=== PATIENT | male | born 1965 | race Caucasian/White ===

== ENCOUNTER 2016-04-29 05:14 | Inpatient (IN) | payer OTHER ==
[2016-04-29] VITALS (48 sets, daily range): BP systolic 85–119; BP diastolic 53–85; PULSE 89–116; TEMP 35.3–36.5; O2SAT 88–100; Ht 172.7 cm; Wt 63.0 kg
[~2016-04-29] VITALS: Ht 172.7 cm; Wt 63.0 kg
[~2016-04-29 05:14] MED LIST: PRED50TA PO
[2016-04-29] MEDS ORDERED: FENTANYL CITRATE INJ 50 MCG/1 ML 2 ML VIAL ONE ×3 (05:16→08:39)
[2016-04-29 05:26] LABS: HEMATOCRIT 48.2 % (42-52); MEAN CELL VOLUME 86.8 fL (80-100); MEAN CORPUSCULAR HEMOGLOBIN 30.3 pg (25-34); MEAN CORPUSCULAR HGB CONC 34.9 g/dl (32-36); MEAN PLATELET VOLUME 9.6 fL (7.4-10.4); PLATELET COUNT 302 K/uL (130-400); RED BLOOD COUNT 5.55 M/uL (4.7-6.1); WHITE BLOOD COUNT 11.84 K/uL (4.8-10.8)
[2016-04-29] MEDS ORDERED: NiCARDipine HCL INJ 2.5 MG/ML 10 ML AMP ONE (05:28)
[2016-04-29] MEDS ORDERED: NITROGLYCERIN/D5W 100MCG/ML 20ML SYR ONE (05:29)
[2016-04-29] MEDS ORDERED: MIDAZOLAM HCL 1 MG/ML 2ML VIAL ONE ×3 (05:29→08:41)
[2016-04-29] MEDS ORDERED: HEPARIN SOD (PORCINE) 1000 UNIT/ML 10 ML VIAL ONE (05:29)
--- NOTE | 2016-04-29 05:29 | EMERGENCY ROOM VISIT NOTE ---
History Report prepared by Natanael: Anthony Conrad Under the Supervision of: Dr. Julius Molina M.D. First contact with patient: 05:13 Chief Complaint: HEART ALERT Stated Complaint: HEART ALERT History of Present Illness The patient is a 50 year old male who presents to the Emergency Room with complaints of severe substernal chest pain starting about an hour ago. The patient woke up with the pain. He notes pain radiation to the back. He denies any pain radiation to the arm or jaw. He currently rates a pain intensity of 10/ 10. He also complains of lightheadedness and shortness of breath. EMS notes he is mildly hypotensive and diaphoretic. He is received Nitro, aspirin, and fluids prior to arrival. His blood sugar was 132. He does not have a history of diabetes. He denies any previous illnesses. The patient denies any drug or alcohol use today. The patient is a current smoker. He does not have any personal or family history of heart disease. He also does not have a personal or family history of blood clots. He does not take any medication. He does not have any allergies. Source of History: patient Onset: about an hour ago Position: chest (substernal) Symptom Intensity: severe Modifying Factors (Relieving): other (Nitro, aspirin, and fluids prior to arrival) Associated Symptoms: + SOB, + diaphoresis Review of Systems See HPI for pertinent positives & negatives. A total of 10 systems reviewed and were otherwise negative. Past Medical & Surgical Medical Problems: (1) No Known Active Medical Problems Family History Patient reports no known family medical history. Social History Smoking Status: Current Every Day Smoker Alcohol Use: occasionally Marital Status: in relationship Housing Status: lives with significant other Occupation Status: employed Current/Historical Medications No Active Prescriptions or Reported Meds Allergies Coded Allergies: BEE STING (Unverified Allergy, Intermediate, swelling, 04/29/16) Physical Exam Vital Signs Date Time Temp Pulse Resp B/P Pulse Ox O2 Delivery O2 Flow Rate FiO2 04/29/16 05:24 36.7 64 20 95/64 94 Room Air 04/29/16 05:24 93 Room Air 4.0 Nasal Cannula 04/29/16 05:21 72 Physical Exam GENERAL: Patient is acutely ill appearing and in severe distress. HEENT: No acute trauma, normocephalic atraumatic, mucous membranes moist, no nasal congestion, no scleral icterus. NECK: No stridor, no adenopathy, no meningismus, trachea is midline. LUNGS: Diffuse crackles. No wheeze, no rhonchi. HEART: Soft heart tones but regular, no murmur. ABDOMEN: Soft, nontender, bowel sounds positive, no masses appreciated, no peritonitis. BACK: No midline tenderness, no CVA tenderness EXTREMITIES: Normal motion all extremities, no cyanosis, no edema. Right posterior pulse on ankle strong and left dorsalis pedis pulse strong. NEUROLOGIC: Alert and oriented, no acute motor or sensory deficits, no focal weakness, cranial nerves grossly intact. SKIN: No rash, no jaundice, pale, diaphoretic. Medical Decision & Procedures ER Provider Diagnostic Interpretation: X ray results are stated below per my interpretation: 1 view Chest X-Ray Chronic lung disease versus early pulmonary edema, no lobar infiltrates, trace middle lobe effusion, no pneumothorax. Laboratory Results 04/29/16 05:15 Red Blood Count 5.55, Mean Corpuscular Volume 86.8, Mean Corpuscular Hemoglobin 30.3, Mean Corpuscular Hemoglobin Concent 34.9, Mean Platelet Volume 9.6, Neutrophils (%) (Auto) 46.6, Lymphocytes (%) (Auto) 44.8, Monocytes (%) (Auto) 6.5, Eosinophils (%) (Auto) 1.6, Basophils (%) (Auto) 0.3, Neutrophils # (Auto) 5.53, Lymphocytes # (Auto) 5.30, Monocytes # (Auto) 0.77, Eosinophils # (Auto) 0.19, Basophils # (Auto) 0.03 04/29/16 05:15 04/29/16 06:01 Test 04/29/16 05:15 04/29/16 06:01 White Blood Count 11.84 K/uL (4.8-10.8) Red Blood Count 5.55 M/uL (4.7-6.1) Hemoglobin 16.8 g/dL (14.0-18.0) Hematocrit 48.2 % (42-52) Mean Corpuscular Volume 86.8 fL (80-100) Mean Corpuscular Hemoglobin 30.3 pg (25-34) Mean Corpuscular Hemoglobin Concent 34.9 g/dl (32-36) Platelet Count 302 K/uL (130-400) Mean Platelet Volume 9.6 fL (7.4-10.4) Neutrophils (%) (Auto) 46.6 % Lymphocytes (%) (Auto) 44.8 % Monocytes (%) (Auto) 6.5 % Eosinophils (%) (Auto) 1.6 % Basophils (%) (Auto) 0.3 % Neutrophils # (Auto) 5.53 K/uL (1.4-6.5) Lymphocytes # (Auto) 5.30 K/uL (1.2-3.4) Monocytes # (Auto) 0.77 K/uL (0.11-0.59) Eosinophils # (Auto) 0.19 K/uL (0-0.5) Basophils # (Auto) 0.03 K/uL (0-0.2) RDW Standard Deviation 43.0 fL (36.4-46.3) RDW Coefficient of Variation 13.7 % (11.5-14.5) Immature Granulocyte % (Auto) 0.2 % Immature Granulocyte # (Auto) 0.02 K/uL (0.00-0.02) Red Blood Cell Morphology Unremarkable Anion Gap 11.0 mmol/L (3-11) Est Creatinine Clear Calc Drug Dose 76.2 ml/min Estimated GFR () 106.2 Estimated GFR (Non- 91.7 BUN/Creatinine Ratio 17.0 (10-20) Calcium Level 8.3 mg/dl (8.5-10.1) Creatine Kinase MB 1.7 ng/ml (0.5-3.6) Creatine Kinase MB Ratio (0-3.0) Troponin I < 0.015 ng/ml (0-0.045) Total Creatine Kinase 87 U/L (39-308) Laboratory results as reviewed by me. Medications Administered Medications (Trade) Dose Ordered Sig/Ivette Route Start Time Stop Time Status Last Admin Dose Admin Miscellaneous Information (Nursing Verbal Med Order) 1 ea ONE ONCE N/A 04/29/16 05:45 04/29/16 05:46 DC 04/29/16 05:40 1 EA ECG Indication: chest pain Rate (beats per minute): 71 Rhythm: normal sinus Findings: ST depression (Inferior), no ectopy, other (anterior STEMI) ED Course 0455: I discussed the patient's case with Dr. Verdugo, form drafter with [facility]. 0513: The patient was evaluated in room B01. A complete history and physical exam was performed. 0540: Upon reevaluation, the patient is resting comfortably. Discussed results and treatment plan with the patient. He verbalized understanding and agreement with the treatment plan. The patient will be evaluated for further management. He is on his way to [facility]. 0541: I discussed the patient's case with Dr. Egan, from [facility]. Medical Decision Differential: Cardiac Ischemia (STEMI, NSTEMI, Unstable Angina, etc), Aortic Dissection, Arrhythmia, Pulmonary Embolism, Pneumonia, Pneumothorax, MSK, Infectious, Pericarditis/Myocarditis, Esophageal Rupture, Gastrointestinal, amongst other pathologies entertained. 50 yr old male heavy smoker with no other PMH nor has he seen a physician in several years. Denies family CAD history. No recent issues until awakening at 4am this morning with acute central chest pain. EKG RN TRANSFER from EMS clearly shows STEMI and thus heart alert called long before patient arrival. Patient to ED within 90 min of initial chest pain. CXR with some pulm edema vs just chronic lung disease from smoking. He has pulses bilateral lower extremities which are strong and no clear evidence of dissection on CXR. With EKG findings and history most consistent with anterior STEMI. PE is low risk given no risk factors nor history of same. Already received ASA RN TRANSFER by EMS. Single SLNTG dose with resultant significant hypotension which mildly improved with IV fluids. Given further fluids and IV fentanyl along with NC O2 here with some improvement in symptoms. Patient clearly quite ill and in severe distress requiring emergent heart catheterization. Dr Verdugo in to evaluate patient and take to [facility] emergently. Consults Time Called: [phone] Consulting Physician: Dr. Verdugo, form drafter with [facility] Returned Call: [phone] I discussed the patient's case with Dr. Verdugo, form drafter with [facility]. Additional Consults: Time Called: 0540 Consulted Phys[facility] Returned Call: [phone] Additional Comments: I discussed the patient's case with Dr. Egan, from [facility]. Impression Primary Impression: ST elevation myocardial infarction (STEMI) of anterior wall Critical Care I have personally spent greater than 45 minutes of critical care time in the direct management of this patient. This includes bedside care, interpretation of diagnostic studies, and testing, discussion with consultants, patient, and family members, and other required patient management activities. This 45 minutes is in excess of all separately billable procedures. Scribe Attestation The scribe's documentation has been prepared under my direction and personally reviewed by me in its entirety. I confirm that the note above accurately reflects all work, treatment, procedures, and medical decision making performed by me. Departure Information Dispostion Being Evaluated By Hospitalist Prescriptions No Active Prescriptions or Reported Meds Referrals [facility] (PCP) Patient Instructions My [facility]
[2016-04-29] MEDS ORDERED: NURSING VERBAL MED ORDER ONE (05:45)
[2016-04-29] MEDS ORDERED: EPTIFIBATIDE 2 MG/ML 10 ML VIAL IV ONE (05:50)
[2016-04-29] MEDS ORDERED: EPTIFIBATIDE 0.75 MG/ML 75MG VIAL IV ONE (05:50)
[2016-04-29 05:55] LABS: BLOOD UREA NITROGEN 16 mg/dl (7-18); CALCIUM 8.3 mg/dl (8.5-10.1); CARBON DIOXIDE 24 mmol/L (21-32); CHLORIDE 107 mmol/L (98-107); CREATININE 0.95 mg/dl (0.60-1.40); GLUCOSE 137 mg/dl (70-99); SODIUM 142 mmol/L (136-145)
[2016-04-29] MEDS ORDERED: DOPamine 400MG / 250ML D5W ONE (06:01)
[2016-04-29] MEDS ORDERED: FENTANYL CITRATE INJ 50 MCG/1 ML 2 ML VIAL IV STA (06:12)
[2016-04-29 06:19] LABS: BASO % 0.3 %; BASO ABS # 0.03 K/uL (0-0.2); COMPLETE YES; EOS % 1.6 %; IG% 0.2 %; LYMPH % 44.8 %; MONO % 6.5 %; NEUT % 46.6 %
[2016-04-29] MEDS ORDERED: NOREPINEPHRINE BITARTRATE 1 MG/ML 4 ML VIAL ONE (06:26)
[2016-04-29] MEDS ORDERED: LIDOCAINE/EPINEPHRINE 1% 20 ML VIAL ONE (06:30)
[2016-04-29 06:38] LABS: POTASSIUM 3.5 mmol/L (3.5-5.1)
[2016-04-29 06:52] LABS: PARTIAL THROMBOPLASTIN RATIO 1.1
--- NOTE | 2016-04-29 07:54 | DIAGNOSTIC IMAGING REPORT ---
CHEST ONE VIEW PORTABLE CLINICAL HISTORY: Chest pain. Heart alert. COMPARISON STUDY: No previous studies for comparison. FINDINGS: Lung volumes are normal. There is no pneumothorax or pleural effusion. Diffuse interstitial thickening is present. There is no consolidation. Cardiac size is normal. Mediastinal contours are unremarkable when allowing for mild rotation. There is a healed fracture of the right clavicle. IMPRESSION: Interstitial thickening consistent with mild pulmonary edema. Electronically signed by: Tiago Wesley M.D. 04/29/2016 7:52 AM Dictated Date/Time: 04/29/2016 7:51 AM
[2016-04-29] MEDS ORDERED: ATROPINE SULFATE 0.1 MG/ML 5ML SYR IV PRN (09:15)
[2016-04-29] MEDS ORDERED: EPTIFIBATIDE BOLUS / DRIP IV ONE (09:15)
[2016-04-29] MEDS ORDERED: ONDANSETRON INJ 2 MG/ML 2 ML VIAL IV PRN (09:15)
[2016-04-29 09:52] LABS: IPAP 12; ISTAT ALLEN TEST Pass; ISTAT ARTERIAL BLOOD GAS HCO3 18 meq/L (19-24); ISTAT ARTERIAL BLOOD GAS PCO2 40 mmHg (35-46); ISTAT ARTERIAL BLOOD GAS PO2 68 mmHg (80-95); ISTAT ARTERIAL BLOOD GAS pH 7.27 (7.35-7.45); ISTAT CARBON DIOXIDE 19 mEq/l (24-31); ISTAT DELIVERY SYSTEM BIPAP; ISTAT FIO2 60 %; ISTAT RATE 12; ISTAT SITE L Radial
[2016-04-29] MEDS ORDERED: SODIUM CHLORIDE 0.9% 1000ML 1,000 ML IV SCH (10:00)
[2016-04-29] MEDS: EPTIFIBATIDE INJ 75 MG PREMIXED IV SCH ×2 (10:04→22:23)
[2016-04-29] MEDS ORDERED: ATORVASTATIN 40 MG TAB PO ONE (10:15)
--- NOTE | 2016-04-29 10:24 | Procedure Note ---
Pre-Mod Sedation Assessment General Date of Moderate Sedation: Apr 29, 2016. Vital Signs: Vital Signs Past 12 Hours Date Time Temp Pulse Resp B/P Pulse Ox O2 Delivery O2 Flow Rate FiO2 04/29/16 09:20 105 60 04/29/16 08:45 122 16 95/67 90 Non-Rebreather 04/29/16 05:24 36.7 64 20 95/64 94 Room Air 04/29/16 05:24 93 Room Air 4.0 Nasal Cannula 04/29/16 05:21 72 Review Cardiovascular: regular rate, rhythm, no edema, no murmur, + abnormal peripheral pulses (Diminished pedal and PT pulses) Abdomen: non tender, soft Lungs: + rales (Bibasilar rales) Pre-Sedation Airway Assessment Oral Cavity: Dentures Short Thick Neck: No Hx of Sleep Apnea: No Smoking Status: Current Every Day Smoker ASA Classification: Class III Procedure Planning Contraindications-for Mod Sed: None Yes Notes The planned sedation has been discussed with the patient and consent obtained. I have identified the patient, determined the appropriateness of sedation and have assessed the patient immediately prior to the procedure. All medicine(s) and interventions are by my order.
--- NOTE | 2016-04-29 10:25 | Procedure Note ---
Post-Mod Sedation Assessment General Date of Moderate Sedation Apr 29, 2016. Vital Signs: Vital Signs Past 12 Hours Date Time Temp Pulse Resp B/P Pulse Ox O2 Delivery O2 Flow Rate FiO2 04/29/16 09:20 105 60 04/29/16 08:45 122 16 95/67 90 Non-Rebreather 04/29/16 05:24 36.7 64 20 95/64 94 Room Air 04/29/16 05:24 93 Room Air 4.0 Nasal Cannula 04/29/16 05:21 72 Review - Discharge Criteria Vital Signs Stable: Yes Alert/Oriented/Conversant: No (sedated,arousable) Returned to Baseline Mental St: No Nausea Absent/Minimal: Yes Pain/Discomfort/Absent/Minimal: Yes Normal/Baseline Respirations: Yes Active Bleeding?: No Pt Received D/C Instructions: N/A Prescriptions Given: None Specific Proced. D/C Criteria Distal Pulses Present (Cardiac: Yes Groin site assessed-Card Cath: Yes Voided Prior To Discharge: N/A Discharged Patients Adult Escort/Transportation: N/A
[2016-04-29 10:33] LABS: HEMATOCRIT 38.5 % (42-52); MEAN CELL VOLUME 86.7 fL (80-100); MEAN CORPUSCULAR HEMOGLOBIN 29.7 pg (25-34); MEAN CORPUSCULAR HGB CONC 34.3 g/dl (32-36); MEAN PLATELET VOLUME 9.7 fL (7.4-10.4); PLATELET COUNT 334 K/uL (130-400); RED BLOOD COUNT 4.44 M/uL (4.7-6.1); WHITE BLOOD COUNT 26.53 K/uL (4.8-10.8)
[2016-04-29 10:43] LABS: BASO ABS # 0.01 K/uL (0-0.2); COMPLETE YES; IG% 0.4 %; LYMPH % 8.7 %; LYMPH ABS # 2.31 K/uL (1.2-3.4); MONO % 5.7 %; NEUT % 85.2 %
[2016-04-29 10:44] LABS: MANUAL MICROSCOPIC REQUIRED? YES; URINE APPEARANCE TURBID (CLEAR); URINE BILIRUBIN NEG (NEG); URINE COLOR RED; URINE NITRITE NEG (NEG); URINE SPECIFIC GRAVITY >= 1.030 (1.000-1.030); UROBILINOGEN NEG (NEG)
[2016-04-29 10:45] LABS: REVIEW REQ? NO
--- NOTE | 2016-04-29 10:46 | Critical Care Consultation ---
Critical Care Consultation Date of Consultation: Apr 29, 2016. Attending Physician: Hector Lynch D.O. Reason for Consultation: ICU admission, cardiogenic shock History of Present Illness Patient is currently sedated with fentanyl s/p cardiac catheterization. Hx taken from ER notes and family (mother Soledad, brother Yudelka, nephew Jostin, girlfriend Charity). Mr Mcgovern is a 50 year old male who presented to the ER with sudden onset severe pain with left arm numbness. Severity 10/10. Associated lightheadedness and shortness of breath. Called ambulance and received ASA, nitroglycerin SL causing hypotension dn requiring IV fluids. Heart alert called by ambulance for STEMI and he was taken emergently to the [facility]. Dr Verdugo performed left heart catheterization showing Proximal LAD 100% stenosis D1 ostial 90%, Mid Circumflex 99%, Distal RCA 30%. LVEF 45%. x2 overlapping drug eluting stents to LAD, x1 CARMELLA to proximal diagonal, x1 CARMELLA to mid circumflex. Ventricular fibrillation during procedure treated with one shock of 200 joules. IV pressors given for low BP and bradycardia requiring IV atropine. He was transferred to the ICU from cardiac [facility] for ongoing care. Past Medical/Surgical History PMHx None (no routine medical care) PSHx cyst removed from testicle last year Family History Patient reports no known family medical history. Father was on dialysis and had heart attack in his 60's Social History Smoking Status: Current Every Day Smoker (pack/day) Smokeless Tobacco Use: No Alcohol Use: none Drug Use: none Marital Status: single (girlfriend), in relationship Housing Status: lives with significant other (girlfriend) Occupation Status: employed Allergies Coded Allergies: BEE STING (Unverified Allergy, Intermediate, swelling, 04/29/16) Home Medications No Active Prescriptions or Reported Meds Current Inpatient Medications Current Inpatient Medications Medications (Trade) Dose Ordered Sig/Ivette Route Start Time Stop Time Status Last Admin Dose Admin Sodium Chloride (Nss 1000ml) 1,000 ml @ 15 mls/hr Q24H IV 04/29/16 10:00 05/29/16 09:59 04/29/16 10:04 15 MLS/HR Atropine Sulfate (Atropine Sulfate 0.1MG/Ml Inj) 0.5 mg ONE PRN IV 04/29/16 09:15 05/29/16 09:14 Ondansetron HCl (Zofran Inj) 4 mg Q6H PRN IV 04/29/16 09:15 05/29/16 09:14 Aspirin (Ecotrin Tab) 81 mg QAM PO 04/30/16 09:00 05/30/16 08:59 Clopidogrel Bisulfate (plAVix TAB) 75 mg QAM PO 04/30/16 09:00 05/30/16 08:59 Atorvastatin Calcium 80 mg 80 mg QAM PO 04/30/16 09:00 05/30/16 08:59 Eptifibatide (Integrilin Inj) 100 ml @ 10.1 mls/hr Q9H55M IV 04/29/16 10:00 04/30/16 05:00 04/29/16 10:04 10.1 MLS/HR Miscellaneous (Stop Order) 1 ea TODAY@0500 ONCE N/A 04/30/16 05:00 04/30/16 05:01 Review of Systems Patient unable to give review of systems due to sedated state from fentanyl and midazolam given. Physical Exam Date Time Temp Pulse Resp B/P Pulse Ox O2 Delivery O2 Flow Rate FiO2 04/29/16 09:20 105 60 04/29/16 08:45 122 16 95/67 90 Non-Rebreather 04/29/16 05:24 36.7 64 20 95/64 94 Room Air 04/29/16 05:24 93 Room Air 4.0 Nasal Cannula 04/29/16 05:21 72 General Appearance: no apparent distress (sedated appears pale) Head: normocephalic, atraumatic Eyes: normal inspection, PERRL, EOMI Neck: no JVD Respiratory/Chest: + crackles, + wheezing (expiratory), + pertinent finding ( on BiPAP) Cardiovascular: regular rate, rhythm, no edema, no murmur Abdomen/GI: normal bowel sounds, non tender, soft, no organomegaly, no pulsatile mass Genitourinary - Male: normal male genitalia, + pertinent finding (rashid blood on initial greene catheter insertion) Back: no CVA tenderness Extremities/Musculoskelatal: no calf tenderness, + slow capillary refill ( peripherally, normal centrally) Neurologic/Psych: + pertinent finding (sedated from fentanyl and midazolam) Skin: no rash, + cyanosis (peripherally) Laboratory Results Last 24 Hours Test 04/29/16 05:15 04/29/16 06:01 04/29/16 06:22 04/29/16 06:58 White Blood Count 11.84 K/uL Red Blood Count 5.55 M/uL Hemoglobin 16.8 g/dL Hematocrit 48.2 % Mean Corpuscular Volume 86.8 fL Mean Corpuscular Hemoglobin 30.3 pg Mean Corpuscular Hemoglobin Concent 34.9 g/dl Platelet Count 302 K/uL Mean Platelet Volume 9.6 fL Neutrophils (%) (Auto) 46.6 % Lymphocytes (%) (Auto) 44.8 % Monocytes (%) (Auto) 6.5 % Eosinophils (%) (Auto) 1.6 % Basophils (%) (Auto) 0.3 % Neutrophils # (Auto) 5.53 K/uL Lymphocytes # (Auto) 5.30 K/uL Monocytes # (Auto) 0.77 K/uL Eosinophils # (Auto) 0.19 K/uL Basophils # (Auto) 0.03 K/uL RDW Standard Deviation 43.0 fL RDW Coefficient of Variation 13.7 % Immature Granulocyte % (Auto) 0.2 % Immature Granulocyte # (Auto) 0.02 K/uL Red Blood Cell Morphology Unremarkable Sodium Level 142 mmol/L Potassium Level mmol/L 3.5 mmol/L Chloride Level 107 mmol/L Carbon Dioxide Level 24 mmol/L Anion Gap 11.0 mmol/L Blood Urea Nitrogen 16 mg/dl Creatinine 0.95 mg/dl Est Creatinine Clear Calc Drug Dose 76.2 ml/min Estimated GFR () 106.2 Estimated GFR (Non- 91.7 BUN/Creatinine Ratio 17.0 Random Glucose 137 mg/dl Calcium Level 8.3 mg/dl Total Creatine Kinase U/L 87 U/L Creatine Kinase MB 1.7 ng/ml Creatine Kinase MB Ratio Troponin I < 0.015 ng/ml Prothrombin Time 11.0 SECONDS Prothromb Time International Ratio 1.0 Activated Partial Thromboplast Time 27.3 SECONDS Partial Thromboplastin Ratio 1.1 Kaolin Activated Coagulation Time 606 SECONDS 482 SECONDS Test 04/29/16 08:28 04/29/16 09:14 04/29/16 09:39 04/29/16 10:10 Kaolin Activated Coagulation Time 157 SECONDS Blood Gas Sample Site L Radial Bedside Blood Gas pH (LAB) 7.27 Bedside Blood Gas pCO2 (LAB) 40 mmHg Bedside Blood Gas pO2 (LAB) 68 mmHg Bedside Blood Gas HCO3 (LAB) 18 meq/L Bedside Blood Gas Total CO2 19 mEq/l Bedside Blood Gas Base Excess (LAB) -9.0 meq/L Bedside Blood Gas O2 Saturation 91.0 % Shukri Test Pass Oxygen Delivery Device BIPAP Bedside Oxygen Rate (breaths/min) 12 Bedside FiO2 60 % Blood Gas IPAP 12 Diagnostic Results CHEST ONE VIEW PORTABLE CLINICAL HISTORY: Chest pain. Heart alert. COMPARISON STUDY: No previous studies for comparison. FINDINGS: Lung volumes are normal. There is no pneumothorax or pleural effusion. Diffuse interstitial thickening is present. There is no consolidation. Cardiac size is normal. Mediastinal contours are unremarkable when allowing for mild rotation. There is a healed fracture of the right clavicle. IMPRESSION: Interstitial thickening consistent with mild pulmonary edema. Electronically signed by: Tiago Wesley M.D. 04/29/2016 7:52 AM Dictated Date/Time: 04/29/2016 7:51 AM Assessment & Plan 50 yo smoker with no routine medical care admitted for STEMI s/p cardiac cath with stents. ICU admission with hypotension requiring vasopressor support and acute respiratory failure. Neuro: Hold off further dosing of fentanyl and midazolam pending clinical course, pain or further agitation. Resp: Acute respiratory failure. Continue on BiPAP 12/5 FiO2 60%. ABG now. May need nicotine patch if having cravings on wakening. Cardio: STEMI: Appreciate cardiology management. ASA, Plavix, Atorvastatin. No BB or ACEi currently due to hypotension. Echocardiogram ordered, Repeat labs with troponin, CBC, CMP, Mg, PO, BNP. CHF: repeat CXR ordered. Will hold off on Lasix currently given hypotension. Right femoral central line currently being placed for fluid management. Greene cath placed. I&Os, Daily weights. Hypotension: Continue levophed to maintain BP. GI: no acute issues : Hematuria on greene cath, UA ordered. Possibly traumatic on Integrilin ID: no acute issues SKIN: no acute issues VTE Prophylaxis: SCDs and TEDs. No chemical prophylaxis while on Integrilin. Code: Full Disposition: Continued ICU stay due to critical status and vasopressor support Resident Physician Supervision Note: I was present with Dr. Abel Christopher during the history and exam. I discussed the case with the resident and agree with the findings and plan as documented in the note. Any exceptions or clarifications are listed here: Repeat CXR shows worsening pulmonary edema. Comfortable on BIPAP for now, FiO2 at 70%. IVC is collapsible on Echo, patient clinically appears dry overall. Will hold off on diuretics for now. Continue pressor support. Supplement Mg. Run of V-tach on the monitor, resolved spontaneously. Likely reperfusion arrhythmia. Continue Integrilin, ASA, Plavix. No beta-blockers or MAY for now secondary to hypotension If his respiratory status deteriorates, may require intubation Documented By: Miles Sykes MD Resident Tracking Resident Involvement: Resident Care Provided Care Provided: Adult Hospital Medicine (ICU)
--- NOTE | 2016-04-29 10:50 | Cardiac Catheterization ---
Procedure Note Procedure Date Apr 29, 2016. Pre-Procedure Diagnosis STEMI AUC Score 9 Post-Procedure Diagnosis Severe CAD, Successful PCI, Decreased LV Systolic Function, Normal Intracardiac Pressures Procedure(s) Performed Coronary Angiography, Left Heart Cath, LV Angiography, PTCA, Drug Eluting Stent , Defibrillation, Femoral Artery Angiography [employer] P[employer] As[employer]er Dr. Verdugo Subscription Agent(s) ZE Mccallum Estimated Blood Loss 80 ml Medication(s) Atropine, Dopamine, Fentanyl, Heparin, Integrilin, Nicardipine (intracoronary), Norepinephrine, Versed, Lidocaine 1% Summary of Findings Indications: Acute anterior myocardial infarction. The patient presented to the emergency department by EMS. He was awakened from sleep with severe chest pain, diaphoresis, and dyspnea. His electrocardiogram showed ST elevations in the anterior leads, poor R-wave progression V1-V4, inferior ST depressions. Catheterization site: 6 [place] sheath right femoral artery. It was 1st attempted to obtain access in the right radial artery. These attempts were unsuccessful. Hemostasis: 6 [place] StarClose vascular closure system. Door to balloon time: 53 minutes. Equipment: 6 [place] EBU 3.75 and 3.5 guide catheters. Six [place] JR4 and pigtail diagnostic catheters. The EBU 3.75 guide catheter was used for intervention to the LAD and LAD diagonal. The EBU 3.5 guide catheter was used for intervention to the left circumflex coronary artery. Interventional equipment: 6 Fr EBU 3.75 and 3.5 guide catheters, Reddell and Whisper guidewires, Medtronic sprinter 2.5 x 12 millimeter balloon dilatation catheter, Chaparro Xience 2.5 x 23 and 2.5 x 8 millimeter drug eluting stents in LAD, [place] Xience 2.25 x 12 millimeter drug-eluting stent in LAD diagonal, Chap[place] Xience 2.25 x 28 millimeter drug-eluting stent in left circumflex, Chaparro Trek 2.5 x 8 millimeter balloon dilatation catheter, [place] NC Trek 3.0 x 12 millimeter balloon dilatation catheter, Chap[place] NC Trek 3.8 x 0 millimeter balloon dilatation catheter, [place] NC Trek 2.25 x 8 millimeter balloon dilatation catheter, [place] Trek 3.0 x 8 millimeter balloon dilatation catheter , Medtronic Sprinter 2.0 x 15 millimeter balloon dilatation catheter. Interventional protocol: Left coronary angiography was 1st performed using the 7 [place] EBU 3.75 guide catheter. Total proximal LAD occlusion noted. A cougar guidewire was advanced past the occlusion. 1 inflation then performed with the sprinter 2.5 by 12 millimeter balloon to a pressure of 10 atmospheres for duration of 20 seconds. Reperfusion of the LAD was established with this inflation. The patient then developed ventricular fibrillation successfully defibrillated with 200 joules via electrode patches already applied to the patient prior to the procedure. He then developed bradycardia and hypotension. This was treated with intravenous atropine and intravenous dopamine. A 2nd Reddell wire was then inserted into the LAD diagonal which was now visualized arising from the original site of LAD occlusion. The Xience 2.5 x 23 millimeter stent was then deployed in the proximal to mid LAD. It was deployed at 18 atmospheres for 30 seconds. Following the stent deployment there remained a severe residual stenosis just distal to the stent. This stent had been chosen after the length of the stenosis was measured digitally. A Xience 2.5 x 8 millimeter stent was then deployed distal to the 1st stent in overlapping fashion. Deployed at a pressure of 18 atmospheres for 30 seconds. The overlap site of the 2 stents was then post dilated with the 2nd stent delivery balloon to a pressure of 18 atmospheres for duration of 30 seconds. A Reddell wire was then inserted into the LAD diagonal. The original diagonal wire which was trapped by the stent was then removed. 2 balloon inflations were then performed to the ostial LAD diagonal stenosis with the Trek 2.5 x 8 millimeter balloon to a pressure of 8 atmospheres for duration of 15 seconds. It was evident that the mid segment of the LAD stents was under deployed. Inflation was performed to the proximal mid segment of the LAD stents with the NC Trek 3 x 12 millimeter balloon to a pressure of 15 atmospheres for duration of 30 seconds. The Xience 2.25 x 12 millimeter stent was then deployed from the proximal LAD into the ostium and proximal segment of the diagonal. It was deployed at a pressure of 18 atmospheres for duration of 45 seconds. The Reddell wire in the LAD was then removed. It was then attempted to cross the stented region in the LAD with a new Reddell wire. these attempts were unsuccessful. The stents were successfully crossed with the Whisper wire. An NC trek 2.25 x 8 millimeter balloon was then advanced over the Reddell wire into the diagonal. Was then attempted to advance an NC Trek 3 x 8 millimeter balloon into the LAD. This balloon would not cross the stented region. It was then exchanged for a Trek 3 x 8 millimeter compliant balloon. This balloon did cross the stented region. Two kissing balloon inflations were then performed in the LAD and LAD diagonal. One inflation for 8 atmospheres for duration of 30 seconds. The 2nd inflation 8 atmospheres for 20 seconds. Follow-up angiography was then performed. He was still complaining of chest pain. He still had hypotension without pressor support. It was felt best to perform intervention to the subtotal left circumflex occlusion. Guide catheter cannulation with the EBU 3.75 catheter was lost. Would not recannulate the left main coronary artery. It was exchanged for the EBU 3.5 guide catheter. This successfully cannulated left main. Intervention was then performed to the left circumflex stenosis. A Reddell wire was advanced into into the circumflex. PTCA was then performed to the mid circumflex with Sprinter 2.5 x 12 millimeter balloon to inflation pressure of 8 atmospheres and maximum duration of 20 seconds. A Xience 2.25 x 28 millimeter stent was then deployed in the mid left circumflex at a pressure of 10 atmospheres for duration of 45 seconds. Follow- up left coronary angiography was then performed. Right coronary angiography, left heart catheterization, and left ventricular angiography were then performed. Right femoral artery angiography was then performed. The sheath was then removed and hemostasis obtained with deployment of a 6 [place] StarClose vascular closure system. Complications: Ventricular fibrillation after reperfusion of the LAD. Successfully treated with 1 shock of 200 joules. Bradycardia and hypotension successfully treated with atropine and intravenous pressors. The pressor during the procedure was changed from dopamine to norepinephrine. No coronary or vascular complications. Findings: Fluoroscopy did not reveal any significant coronary calcifications. The coronary circulation was right dominant. The left main coronary was a large caliber vessel without obstructive disease. It gave rise to a medium caliber left anterior descending coronary artery and to a small to medium caliber left circumflex coronary artery. On initial angiography the proximal LAD was totally occluded after it gave rise to a long small caliber 1st diagonal artery. AKHIL 0 flow. Following passage of the guidewire AKHIL 1 flow was established. Following initial PTCA AKHIL 2 flow was established into the LAD and a long medium caliber 2nd diagonal artery. this 2nd diagonal arose from the original occlusion site in the proximal LAD. The diagonal had an ostial 95-99 percent stenosis. Following balloon angioplasty to this ostial diagonal stenosis there a remained a 95 percent stenosis. Following the stent procedure to the LAD and LAD diagonal and kissing balloon inflations to residual stenosis in the proximal LAD was 0-10 percent. The residual stenosis in the diagonal was 0-10 percent. There is no evidence of dissection, thrombus , perforation, or distal embolic event. AKHIL 3 flow throughout the LAD and the diagonal. The proximal left circumflex had a 10-30 percent stenosis. Following the origin of a prominent left atrial branch the mid circumflex had a subtotal 99 percent stenosis. AKHIL 2 flow. After PTCA There remained a significant residual stenosis in the mid circumflex. AKHIL 2 flow. Following stent deployment to the mid left circumflex the residual stenosis at this site was 0-10 percent. Immediately following the stent there is a 10-20 percent stenosis. Following the stent to circumflex gave rise to a small caliber marginal artery. The marginal had ostial and proximal 10-20 percent stenosis. AKHIL 3 flow was present in the circumflex and its marginal artery following stent deployment. The right coronary was a medium caliber vessel which had a 20 -30 percent early mid segment stenosis. The mid RCA and had 0-10 percent stenosis. Distal RCA 10-20 percent stenosis. The distal RCA gave rise to a small caliber posterior descending artery and very small caliber posterolateral artery. These vessels had no obstructive disease. Left ventricular angiography performed from the 30 degree right anterior oblique projection using a hand injection of contrast dye revealed the posterior basal and diaphragmatic segments to contract normally. The anterior basal segments contracted normally. The anterolateral segment was severely hypokinetic to akinetic. The apex was akinetic to dyskinetic. No mitral regurgitation was noted. The calculated left ventricular ejection fraction was 45 percent. Right femoral angiography revealed the sheath to be present in the right common femoral artery. No obstructive disease was noted in the right external iliac artery, right common femoral artery, right superficial femoral artery, and right profunda artery. At the completion of the procedure patient's chest pain had resolved. His rhythm was stable. On low-dose norepinephrine his blood pressure was stable. During the procedure he received intravenous heparin and Integrilin. Therapeutic activated clotting times were documented. Plan: The patient was to be admitted to the intensive care unit. It was planned for for him to remain on intravenous Integrilin for at least 18 hours. He was to be given a loading dose of oral clopidogrel 600 milligrams post procedure. He should remain on dual antiplatelet therapy ideally for at least 1 year following this procedure. He should remain on aspirin therapy indefinitely. When his pressure is stable he will be started on beta-anika and MAY-inhibitor therapy. He will be started on statin therapy. Post PCI echocardiogram was ordered. Serial electrocardiograms, cardiac enzymes, metabolic profiles , and CBCs ordered. Hemoglobin A1c and lipid profile also ordered. Hemodynamics Rest Ao: 126/86/102 mm Hg Final Ao: 101/66/83 mm Hg LV: 94/12 mm Hg Recommendations Medical therapy and/or Counseling, PCI without planned CABG Specimens None Radiation Exposure (mGy) 3114 Contrast (mls) 575 ml Visipaque Fluids (cc crystalloids) 450 ml Drains none Anesthesia IV versed,fentanyl. Lidocaine 1% local Procedural Complication(s) Ventricular fibrillation after reperfusion LAD. Treated successfully with one shock of 200 joules. Systemic hypotension requiring intravenous pressors. Bradycardia requiring intravenous atropine. Disposition ICU ACC Data Cardiac Status Clinical evaluation leading to the procedure CAD Presntation: STEMI Anginal Classification: CCS IV Heart Failure: Yes, NYHA Class: CCS IV Cardiogenic Shock w/in 24Hrs: No Cardiac Arrest w/in 24Hrs: No Imaging studies past 6 months: No Stress studies past 6 months: No Standard Exercise Stress Test: No Stress Echocardiogram: No Stress Testing w/SPECT MPI: No Cardiac CTA: No Coronary Anatomy Dominant: Right Left Main (% Stenosis): Normal (100) LAD (% Stenosis): Proximal D1 (% Stenosis): Normal D2 (% Stenosis): Ostial (95-99) Circumflex (% Stenosis): Mid (99) OM1 (% Stenosis): Ostial (10-20), Proximal (10-20) RCA (% Stenosis): Mid (20-30,0-10), Distal (10-20) R PDA (% Stenosis): Normal R PL1 (% Stenosis): Normal Left Ventricular Angiography EF (%): 45 Wall Motion: Inferior (Normal), Apical (Dyskinetic), Anterior (Hypokinetic) Mitral Regurgitation: None Diagnostic Physician's Name: Billy Verdugo M.D. Status: Emergency Closure Device Percutaneous Entry Location: Femoral (6 Fr sheath right femoral artery) Closure Device: StarClose Recommendations: Medical therapy and/or Counseling, PCI without planned CABG PCI Indication: Immediate PCI for STEMI First Noted: First EKG Lesion Segment Name: Proximal LAD Culprit Artery: Yes Stenosis Prior to Rx (%): 100 Chronic Total Occlusion: No IVUS: No FFR: No Pre-Procedure AKHIL Flow: 0 Previously Treated Lesion: No Lesion Complexity: High/C Lesion Length (mm): 25 Thrombus Present: Yes Bifurcation Lesion: Yes Guidewire Across Lesion: Yes Guidewire: Stenosis Post-Procedure (%): 0-10 Post-Procedure AKHIL Flow: 3 Device(s) Deployed: Yes Type of Device(s): Chaparro Xience 2.5 X 23 mm and 2.5 X 8 mm CARMELLA ( overlapping) in LAD. Post dilated with 3 X 12 mm NC Trek. Xience 2.25 X 12 mm CARMELLA proximal LAD into proximal second diagonal. Kissing balloons ( NC Trek 3 X 8 mm in diagonal and 3 X 8 mm Trek in LAD ) inflations then performed. Lesion #2 Segment Name: Mid left circumflex Culprit Artery: No Stenosis Prior to Rx (%): 99 Chronic Total Occlusion: No IVUS: No FFR: No Pre-Procedure AKHIL Flow: 2 Previously Treated Lesion: No Lesion Complexity: High/C Lesion Length (mm): 24 Thrombus Present: No Bifurcation Lesion: No Guidewire Across Lesion: Yes Guidewire: Stenosis Post-Procedure (%): 0-10 Post-Procedure AKHIL Flow: 3 Device(s) Deployed: Yes Type of Device(s): Chaparro Xience 2.25 x 28 mm CARMELLA. Intraprocedure Events Significant Dissection: No Perforation: No
[2016-04-29 10:51] LABS: ALT/SGPT 86 U/L (12-78); AST/SGOT 571 U/L (15-37); BLOOD UREA NITROGEN 15 mg/dl (7-18); BUN/CREATININE RATIO 15.6 (10-20); CALCIUM 7.5 mg/dl (8.5-10.1); CARBON DIOXIDE 24 mmol/L (21-32); CHLORIDE 108 mmol/L (98-107); CREATININE 0.95 mg/dl (0.60-1.40); GLUCOSE 157 mg/dl (70-99); SODIUM 141 mmol/L (136-145)
--- NOTE | 2016-04-29 10:52 | DIAGNOSTIC IMAGING REPORT ---
CHEST ONE VIEW PORTABLE CLINICAL HISTORY: Respiratory failure COMPARISON STUDY: 04/29/2016 FINDINGS: The heart is normal in size. There is a progressive pulmonary edema pattern. No pleural effusions are visualized. There is no pneumothorax.[ There is an old right lacunar fracture IMPRESSION: Progressive pulmonary edema pattern Electronically signed by: Dipesh Zhu M.D. 04/29/2016 10:50 AM Dictated Date/Time: 04/29/2016 10:50 AM
[2016-04-29 11:00] LABS: URINE RBC >30 /hpf (0-4)
[2016-04-29] MEDS ORDERED: POTASSIUM CHLR 10 MEQ / WTR 10 MEQ in PREMIXED WATER 100 ML IV SCH (11:00)
[2016-04-29 11:01] LABS: URINE BACTERIA NEG (NEG); ZZURINE CULT IF INDIC CATH NO
[2016-04-29 11:10] LABS: ALKALINE PHOSPHATASE 60 U/L (45-117); CHOLESTEROL 146 mg/dl (0-200); CHOLESTEROL/HDL RATIO 4.6; HDL CHOLESTEROL 32 mg/dl; MAGNESIUM 1.9 mg/dl (1.8-2.4); PHOSPHORUS 2.4 mg/dl (2.5-4.9); TRIGLYCERIDES 173 mg/dl (0-150); VERY LOW DENSITY LIPOPROT CALC 35 mg/dl
--- NOTE | 2016-04-29 11:18 | Procedure Note ---
Procedure Note Procedure Date Apr 29, 2016. (Leela Tang PA-C) Central Line Procedure time out: side/site verified, patient ID confirmed, sterile procedure used Consent obtained: emergent consent implied Time of procedure: 10:00 Performed by: physician supervisor mill Indications: central drug admin. Prep: chlorhexadine prep, sterile drape, sterile procedures used Anesthesia: lidocaine 1% without epi Volume anesthetic (ml's): 5 Central line lumen: triple Central line location: femoral (L) Additional details: percutaneous placement, ultrasound guidance, Selinger technique used, line not sutured (Stat-lock securely placed), good blood return CXR: other (Visualized via ultrasoun) Complications: none Patient tolerated procedure: well Post-procedure vital signs: reviewed and stable Comments: Consent was not obtained; procedure was performed emergently at the discretion of Dr. Foreign Sykes Procedure was directly observed by Dr. Sykes Procedure: Procedure was performed under strict sterile field in O.R. fashion. The left groin was cleaned with chloroprep scrub and the pt was draped in sterile fashion. The femoral vein was identified using ultrasound. After anesthetizing the area with 5cc of lidocaine, venous blood was withdrawn after accessing the vein under ultrasound guidance. The syringe was removed and a guide wire was advanced into the introducer needle. The dilator was advanced after being exchanged for the introducer needle. After appropriate dilation was obtained, the dilator was removed and the central catheter was placed over the guide wire using Seldinger technique. The wire was removed and the catheter was placed at 20 cm via StatLock. A surgical dressing was placed over the catheter with a biofilm shield in place. At the time of the procedure each port was aspirated and then flushed properly. Pt tolerated the procedure well with no complications. (Leela Tang PA-C) Comments: Attending physician supervision note: I was present and I assisted HOWARD Tang for the entire time during the above mentioned procedure. No complications noted, vein accessed from the first stick, no "[id number]" Guidewire was removed intact Documented By: Miles Sykes MD (Miles Sykes .MD)
[2016-04-29] MEDS ORDERED: MAGNESIUM SULFATE 1GM / D5W 1 GM in PREMIXED IN D5W 100 ML IV ONE (11:30)
--- NOTE | 2016-04-29 12:10 | CARDIOLOGY CONSULTATION ---
DATE OF CONSULTATION: 04/29/2016 DATE OF CONSULTATION: 04/29/2016. PRIMARY PHYSICIAN: [facility]. REFERRING PHYSICIAN: Julius Molina M.D. CONSULTATION: Billy Verdugo M.D. ATTENDING PHYSICIAN: Hector Lynch D.O. HISTORY OF PRESENT ILLNESS: The patient is a 50-year-old white male. He denies any prior history of any chronic medical illnesses. He does not routinely see physicians. He has been seen to [facility] on an as needed basis. He awoke from sleep this morning at approximately 4 a.m. with severe retrosternal chest pressure and pain. This was associated with diaphoresis and dyspnea. Because of the discomfort his girlfriend who he lives with called 911. He was brought by ambulance to [facility]. An electrocardiogram performed in the field revealed evidence of an acute anterior myocardial infarction. Based on this a heart alert was called. He was given a loading dose of aspirin by EMS. He was also given sublingual nitroglycerin which caused him to have a decrease in his blood pressure. He was then given intravenous fluids. On arrival to the Emergency Department, he complained of severe chest discomfort without radiation, lightheadedness, diaphoresis, and dyspnea. The patient was promptly evaluated by Dr. Molina. A repeat electrocardiogram was performed and continued to show ST segment elevations consistent with an acute anterior VT. When I arrived to the Emergency Department, the patient was still complaining of severe 10/10 chest pain. He was also complaining of dyspnea. In the Emergency Department, his blood pressure was 95/64. He was given intravenous fluid boluses. After the patient was examined by me and verbal consent obtained for cardiac catheterization/PCI, he was brought emergently to the cardiac catheterization laboratory for cardiac catheterization and probable coronary intervention. The patient was not in a condition that he could sign the consent form. He did verbally agree to the procedure. He was in too much distress to sign the consent form. In the catheterization lab it was initially attempted to obtain access via the right radial artery. These attempts were unsuccessful. A 6-Maltese sheath was then placed uneventfully in the right femoral artery. Fluoroscopy did not reveal any significant coronary calcifications. Left coronary angiography was first performed with a guide catheter. This revealed a total proximal LAD occlusion. The patient then underwent PTCA to this LAD occlusion. AKHIL 1 flow was established in the LAD. The patient then developed ventricular fibrillation requiring 1 shock of 200 joules. He was converted to sinus rhythm. However, he was bradycardiac. Because of hypotension and bradycardia he was started on dopamine and was also given intravenous atropine. Prior to intervention, he had received intravenous heparin and Integrilin. Following PTCA to the LAD it was seen that there was a prominent bifurcating LAD diagonal arising from the original LAD stenotic site. The LAD stenosis and occlusion was a bifurcation lesion. A guidewire was then placed in the diagonal. A Xience 2.5 x 23 mm stent was then deployed in the proximal to mid LAD over the origin of the diagonal. Following deployment of this stent there was a residual stenosis just distal to the stent. A Xience 2.5 x 8 mm stent was then deployed distal to the first stent, but in an overlapping fashion. The overlap site of the stents was post dilated with the stent delivery balloon. Another guidewire was then placed in the LAD diagonal. The original LAD diagonal wire was then withdrawn. PTCA was then performed to a severe ostial LAD diagonal stenosis with a 2.5 x 8 mm balloon. There remained a significant residual stenosis. It was also noted that the mid portion of the LAD stents appeared to be under deployed. The proximal to mid segment of this stent was then post dilated with a 3 mm noncompliant balloon. A Xience 2.25 x 12 mm stent was then deployed from the proximal LAD into the LAD diagonal. It was deployed at the rated burst pressure. Following this stent deployment, the LAD was rewired with a whisper balloon. Kissing balloon inflations were then performed to the LAD and LAD diagonal with a 2.25 x 8 mm NC Trek balloon in the diagonal and a 3 x 8 mm Trek balloon in the LAD. Followup angiography was then performed. Initial angiography had also revealed a subtotal mid left circumflex stenosis. The circumflex was a very small caliber vessel. PTCA was then performed to the mid left circumflex with a 2 mm diameter balloon. The area of stenosis in the left circumflex was long. A 2.25 x 28 mm Xience stent was then deployed in the mid circumflex extending into the left circumflex marginal. Follow-up angiography was then performed. At both the LAD, LAD diagonal stent sites there was no residual stenosis. No evidence of dissection, thrombus, perforation, or distal embolic event. AKHIL 3 flow was present in the LAD and LAD diagonal. Following intervention to the left circumflex AKHIL 3 flow was present in the left circumflex in the marginal. There was no evidence of dissection, thrombus, or perforation. The right coronary angiography was then performed and revealed only mild distal arthrosclerotic disease. LV angiography was then performed with a hand injection of contrast dye. This revealed apical akinesis to dyskinesis. Anterior hypokinesis. Normal inferior wall motion. LV ejection fraction approximately 45%. Right femoral angiography was then performed and revealed the sheath to be present in the right common femoral artery. Hemostasis was obtained with deployment of a 6-Maltese StarClose vascular closure system. At the completion of procedure, the patient had no complaints of chest pain. During the procedure, he did need to be placed on supplemental oxygen by facemask because of oxygen saturation less than 90%. His pressor agent was switched from dopamine to norepinephrine. With low dose of norepinephrine he was maintaining systolic pressures at greater than 90. Activated clotting times were documented during the procedure. They were supratherapeutic. The final activated clotting time prior to sheath removal was 157 seconds. This was after intervention had been completed. PAST MEDICAL HISTORY: The patient denies any prior medical history. He specifically denies history of diabetes mellitus, hypertension, or dyslipidemia. FAMILY HISTORY: No family history of premature coronary artery disease. SOCIAL HISTORY: The patient is single. Lives with his girlfriend. He smokes up to 1 pack of cigarettes a day. He has smoked cigarettes since he was a teenager. He denies any significant use of alcohol. 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 REVIEW OF SYSTEMS: Complete review of systems in the Emergency Department was not able to be obtained secondary to the patient's extreme distress. He has not had any bleeding complaints. No cerebrovascular or peripheral vascular complaints. He has dentures. PHYSICAL EXAMINATION: GENERAL: In the Emergency Department revealed him to be in severe distress. VITAL SIGNS: In the Emergency Department showed a blood pressure of 95/64, pulse 64, pulse oximetry on 4 liters per minute nasal cannula oxygen 93%. HEAD: Normal. EYES: Anicteric. Conjunctivae appeared normal. No xanthelasma. MOUTH: Dentures. Moist. NECK: No jugular venous distension. Carotids 2/2 bilaterally. Normal upstroke. No bruits. LUNGS: Slight increased respiratory effort. Bibasilar rales. No wheezes. HEART: Distant heart sounds. Regular rate and rhythm. No murmur, S3, or rub heard. ABDOMEN: Soft. Nontender. No palpable masses or organomegaly. No bruits. EXTREMITIES: No pretibial edema. No cyanosis or clubbing. Dorsalis pedis and posterior tibial pulses weakly palpable bilaterally. NEUROLOGIC: Alert and oriented x3. Motor grossly intact. PSYCHIATRIC: The patient was in physical distress from his chest pain. DATA: Electrocardiogram performed in the Emergency Department revealed normal sinus rhythm, low QRS voltage, ST depressions in leads 2, 3, aVF, ST segment elevations in V1-V5, poor R-wave progression V1-V3. Slight ST elevation aVL. Chest x-ray and electrocardiogram were reviewed by me. Chest x-ray shows interstitial edema consistent with pulmonary edema. LABORATORY DATA: Labs in the Emergency Department revealed WBC 11.84, hemoglobin 16.9, hematocrit 48.2, platelet count 302. INR 1.0, PTT 27.3. Metabolic profile -- sodium 142, potassium 3.5, chloride 107, carbon dioxide 24, BUN 16, creatinine 0.95, random glucose 137. Calcium 8.3. CK total was 87 with MB of 1.7. Peak troponin I was less than 0.015. Activated clotting times in the labor relations consultant were 606 seconds and then 482 seconds. ASSESSMENT: 1. Acute anterior myocardial infarction secondary to total proximal left anterior descending occlusion. This occlusion involved the origin of a prominent LAD diagonal. Successful intervention to the bifurcation stenosis with stents in both the LAD and the diagonal. No significant residual stenosis in the LAD or LAD diagonal post intervention. AKHIL 3 flow in the vessels. No coronary complications. 2. Subtotal mid left circumflex occlusion. Successful deployment of a long drug-eluting stent at the site. No complications from the coronary artery post-circumflex intervention. 3. Cardiogenic shock with pulmonary edema and systemic hypotension secondary to the acute myocardial infarction. 4. Ventricular fibrillation after reperfusion of the LAD. Successfully and promptly treated with 1 shock of 200 joules. No further significant arrhythmias in the catheterization lab. In the intensive care unit, he has had nonsustained ventricular tachycardia. 5. Coronary artery disease risk factors include at a minimum long-standing smoking history. Suspect the patient also has dyslipidemia. His diet is high in saturated fats. PLAN: 1. The patient was admitted to the intensive care unit. He has been admitted to the hospitalist service. 2. Assistant Sales Director consultation has already been performed by Dr. Miles Sykes. He is managing the patient in the intensive care unit. The patient has been placed on BiPAP for respiratory support. He remains on low dose norepinephrine for pressor support. 3. The patient will remain on intravenous Integrilin until at least tomorrow morning. He will be given a 600 mg loading dose of oral clopidogrel when he is able to take oral medications. 4. Ultimately, would like to start the patient on beta anika and MAY inhibitor therapy. Will need to hold these medications until he is hemodynamically stable. 5. Will start atorvastatin 80 mg daily when he is able to take oral medications. 6. Serial troponin, metabolic profile, CBC. 7. Serial electrocardiograms. 8. Echocardiogram today to further assess LV systolic function. Also attempt to assess volume status. In addition to the time spent in performing the cardiac catheterization and interventional procedure, 90 minutes of critical care time was spent by me today in management of this patient. This started after he was evaluated by me in the Emergency Department. This included time spent in the cardiac catheterization lab managing his hypotension, bradycardia, and arrhythmias. It included time spent post-procedure in the intensive care unit. His case was extensively discussed with the ICU team.
[2016-04-29 12:13] LABS: ESTIMATED AVERAGE GLUCOSE 108 mg/dl; HA1C FLAG Normal (Normal)
--- NOTE | 2016-04-29 12:51 | ECHOCARDIOGRAM REPORT ---
*NOTICE TO RECEIVING REPUBLICAN AGENCY This information is strictly Confidential and protected under [place] law. [place] law prohibits you from making any further disclosure of this information unless further disclosure is expressly permitted by the written consent of the person to whom it pertains or is authorized by law. A general authorization for the release of medical or other information is not sufficient for this purpose. Hospital accepts no responsibility if the information is made available to any other person, INCLUDING THE PATIENT. Interpretation Summary * Name: GURINDER BABCOCK Study Date: 04/29/2016 12:02 PM BP: 95/67 mmHg * [facility] HR: 102 * : 1965 (M/d/yyyy) Gender: Male Height: 64 in * Age: 50 yrs Ethnicity: CA Weight: 138 lb * Ordering Physician: Billy eVrdugo * Referring Physician: Self, Referred * Performed By: Jim Metcalf RCS * * Reason For Study: AMI, S/P CATH w 4 Stents * BSA: 1.7 m2 * Mild - moderate left ventricular systolic function. * Anteroseptal and apical akinesis. * Normal right ventricular systolic function. * Normal chamber dimensions. * Normal central venous pressure. * No significant mitral or tricuspid valvular abnormalities noted. * Aortic and pulmonic valves poorly visualized. * The study was technically difficult. Procedure Details * A complete two-dimensional transthoracic echocardiogram was performed (2D, M-mode, Doppler and color flow Doppler). Left Ventricle * The left ventricle is normal in size. * There is normal left ventricular wall thickness. * Left ventricular systolic function is mild to moderately reduced. * Ejection Fraction = 40-45%. * Anteroseptal and apical akinesis. Right Ventricle * The right ventricle is normal in size and function. Atria * The left atrial size is normal. * Right atrial size is normal. Mitral Valve * The mitral valve is grossly normal. * There is no mitral valve stenosis. * Significant mitral regurgitation is absent. Tricuspid Valve * The tricuspid valve is not well visualized, but is grossly normal. Aortic Valve * The aortic valve is not well visualized. Pulmonic Valve * The pulmonic valve is not well visualized. Great Vessels * The aortic root is not well visualized. Pericardium/Pleural * There is no pericardial effusion. Great Vessels * Normal inferior vena cava diameter and respiratory variation suggests normal central venous pressure. MMode 2D Measurements and Calculations IVSd 0.94 cm IVSs 1.1 cm LVIDd 4.1 cm LVIDs 3.4 cm LVPWd 0.92 cm LVPWs 1.1 cm IVS/LVPW 1.0 FS 17.7 % EDV(Teich) 73.4 ml ESV(Teich) 46.1 ml EF(Teich) 37.2 % EDV(cubed) 68.0 ml ESV(cubed) 37.9 ml EF(cubed) 44.2 % % IVS thick 16.9 % % LVPW thick 21.4 % LV mass(C)d 118.1 grams LV mass(C)dI 70.7 grams/m\S\2 LV mass(C)s 112.8 grams LV mass(C)sI 67.5 grams/m\S\2 SV(Teich) 27.3 ml SI(Teich) 16.4 ml/m\S\2 SV(cubed) 30.1 ml SI(cubed) 18.0 ml/m\S\2 Doppler Measurements and Calculations PA V2 max 86.7 cm/sec PA max PG 3.0 mmHg
[2016-04-29] MEDS ORDERED: INFLUENZA VIRUS QUAD VACCINE 0.5 ML SYR IM. ONE (13:45)
[2016-04-29] MEDS ORDERED: INFLUENZA ADMINISTRATION CHARGE ONE (13:45)
[2016-04-29 15:30] LABS: IPAP 12; ISTAT ALLEN TEST Pass; ISTAT ARTERIAL BLOOD GAS HCO3 20 meq/L (19-24); ISTAT ARTERIAL BLOOD GAS PCO2 35 mmHg (35-46); ISTAT ARTERIAL BLOOD GAS PO2 91 mmHg (80-95); ISTAT ARTERIAL BLOOD GAS pH 7.36 (7.35-7.45); ISTAT CARBON DIOXIDE 21 mEq/l (24-31); ISTAT DELIVERY SYSTEM BIPAP; ISTAT FIO2 70 %; ISTAT RATE 12; ISTAT SITE L Radial
[2016-04-29] MEDS ORDERED: CLOPIDOGREL BISULFATE 75 MG TAB PO ONE (15:30)
[2016-04-29 16:01] LABS: HEMATOCRIT 37.2 % (42-52)
[2016-04-29 16:12] LABS: BUN/CREATININE RATIO 17.4 (10-20); CALCIUM 7.7 mg/dl (8.5-10.1); CREATININE 0.91 mg/dl (0.60-1.40); POTASSIUM 4.5 mmol/L (3.5-5.1)
--- NOTE | 2016-04-29 16:24 | History and Physical ---
History & Physical Date & Time of Service: Apr 29, 2016 at 16:[address] Chief Complaint: St Elevation Myocardial Infraction, Ventricular Primary Care Physician: Andi,Susana Vol.in Medicine History of Present Illness Source: patient, family, parent Mr Nahum Mcgovern is a 50 yo M from [place] who presented initially as a heart alert today (04/29/16). When I saw him, he had a BiPAP mask on and history was taken mainly from his mother. The patient reports he was sleeping and at 4 am woke up with substernal, left sided chest pain, with numbness down the left arm. He was brought in by ambulance and received aspirin, nitroglycein (which called hypotension) so he received IV fluids. A Heart Alert was called upon his arrival to the ED, and he underwent cardiac catheterization with Dr Verdugo. He was found to have 100% stenosis in the proximal LAD, 99% in the mid-circumflex, 30% of the distal RCA. He had two drug-eluting stents placed in the LAD, one in the proximal diagonal, and one to the mid-circumflex. During his catheterization he had ventricular fibrillation which converted to NSR with 200J shock. He became bradycardic and hypotensive and received IV atropine and was started on pressors. Upon arrival to the ICU, he was on BiPAP, but awake and alert. He reported his pain was manageable but he felt like he had to pee despite his greene catheter. Past Medical/Surgical History PMHx: Occasionally seeks care at [facility]. Reportedly no PMHx apart from smoking hx (see below) PSHx: None Family History Patient reports no known family medical history. Father in his 60's from cardiac issue - had two MIs when was on dialysis Mother otherwise healthy Social History Smoking Status: Current Every Day Smoker (pack/day) Smokeless Tobacco Use: No Alcohol Use: none Drug Use: none Marital Status: in relationship (has a girlfriend) Occupational Status: employed Allergies Coded Allergies: BEE STING (Unverified Allergy, Intermediate, swelling, 04/29/16) Home Medications No Active Prescriptions or Reported Meds Review of Systems Constitutional: + fatigue, No chills, No fever, No weakness, No weight loss Eyes: No eye pain, No worsening of vision ENT: No hearing loss Respiratory: No cough, No dyspnea at rest, No dyspnea on exertion, No shortness of breath, No sputum, No wheezing Cardiovascular: + chest pain (resolved now) Abdomen: No constipation, No diarrhea, No nausea, No pain, No vomiting Musculoskeletal: No joint pain, No muscle pain Genitourinary - Male: + hematuria (initially had hematuria, now resolved), No dysuria, No urinary frequency Neurologic: No memory loss Endocrine: No fatigue Integumentary: No rash Physical Exam Vital Signs Date Time Temp Pulse Resp B/P Pulse Ox O2 Delivery O2 Flow Rate FiO2 04/29/16 14:00 96 20 99/69 100 BiPAP 60 04/29/16 12:48 93 19 91/72 100 04/29/16 12:45 94 20 99 04/29/16 12:38 92 20 94/75 100 04/29/16 12:30 96 20 100 04/29/16 12:28 91 20 98/70 100 04/29/16 12:18 98 21 96/67 96 04/29/16 12:16 98 94 70 04/29/16 12:15 92 20 100 04/29/16 12:09 95 23 95/74 99 04/29/16 12:00 99 BiPAP 70 04/29/16 12:00 107 20 89 04/29/16 11:58 100 23 100/74 91 04/29/16 11:48 106 20 95/66 97 04/29/16 11:45 94 20 98 04/29/16 11:38 96 23 85/64 98 04/29/16 11:30 96 21 98 04/29/16 11:29 93 21 89/67 98 04/29/16 11:18 96 21 93/71 98 04/29/16 11:15 98 22 99 04/29/16 11:11 102 23 88/66 97 04/29/16 11:11 102 23 88/66 97 04/29/16 11:08 98 /69 97 04/29/16 11:08 98 / 97 04/29/16 11:00 97 20 97 04/29/16 11:00 97 20 97 04/29/16 10:58 100 21 98/79 96 04/29/16 10:48 95 24 103/74 98 04/29/16 10:45 102 19 97 04/29/16 10:38 95 17 103/72 97 04/29/16 10:30 100 20 95 04/29/16 10:28 102 18 99/75 96 04/29/16 10:20 90 70 04/29/16 10:18 103 18 97/72 94 04/29/16 10:15 97 18 96 04/29/16 10:08 105 19 93/70 95 04/29/16 10:00 110 18 88 04/29/16 09:58 106 18 112/84 90 04/29/16 09:48 108 19 101/72 04/29/16 09:45 108 21 04/29/16 09:38 113 19 109/85 04/29/16 09:30 109 24 04/29/16 09:30 109 18 97/53 90 BiPAP 60 04/29/16 09:20 105 60 04/29/16 09:15 35.3 116 18 119/74 91 Non-Rebreather 15.0 04/29/16 09:15 35.3 116 16 119/74 89 BiPAP 60 04/29/16 08:45 122 16 95/67 90 Non-Rebreather 04/29/16 05:24 36.7 64 20 95/64 94 Room Air 04/29/16 05:24 93 Room Air 4.0 Nasal Cannula 04/29/16 05:21 72 General Appearance: WD/WN, no apparent distress, + pertinent finding (on Bipap 12) Head: normocephalic, atraumatic Eyes: normal inspection, PERRL ENT: hearing grossly normal Neck: supple, no JVD Respiratory/Chest: lungs clear, normal breath sounds, no respiratory distress Cardiovascular: regular rate, rhythm, no murmur, normal peripheral pulses, + JVD Abdomen/GI: normal bowel sounds, non tender, soft Genitourinary - Male: + pertinent finding (greene in place) Extremities/Musculoskelatal: no pedal edema Neurologic/Psych: alert, oriented x 3 Skin: no rash Diagnostics Laboratory Results Results Past 24 Hours Test 04/29/16 05:15 04/29/16 06:01 04/29/16 06:22 04/29/16 06:58 Range/Units White Blood Count 11.84 4.8-10.8 K/uL Red Blood Count 5.55 4.7-6.1 M/uL Hemoglobin 16.8 14.0-18.0 g/dL Hematocrit 48.2 42-52 % Mean Corpuscular Volume 86.8 80-100 fL Mean Corpuscular Hemoglobin 30.3 25-34 pg Mean Corpuscular Hemoglobin Concent 34.9 32-36 g/dl Platelet Count 302 130-400 K/uL Mean Platelet Volume 9.6 7.4-10.4 fL Neutrophils (%) (Auto) 46.6 % Lymphocytes (%) (Auto) 44.8 % Monocytes (%) (Auto) 6.5 % Eosinophils (%) (Auto) 1.6 % Basophils (%) (Auto) 0.3 % Neutrophils # (Auto) 5.53 1.4-6.5 K/uL Lymphocytes # (Auto) 5.30 1.2-3.4 K/uL Monocytes # (Auto) 0.77 0.11-0.59 K/uL Eosinophils # (Auto) 0.19 0-0.5 K/uL Basophils # (Auto) 0.03 0-0.2 K/uL RDW Standard Deviation 43.0 36.4-46.3 fL RDW Coefficient of Variation 13.7 11.5-14.5 % Immature Granulocyte % (Auto) 0.2 % Immature Granulocyte # (Auto) 0.02 0.00-0.02 K/uL Red Blood Cell Morphology Unremarkable Sodium Level 142 136-145 mmol/L Potassium Level 3.5 3.5-5.1 mmol/L Chloride Level 107 98-107 mmol/L Carbon Dioxide Level 24 21-32 mmol/L Anion Gap 11.0 3-11 mmol/L Blood Urea Nitrogen 16 7-18 mg/dl Creatinine 0.95 0.60-1.40 mg/dl Est Creatinine Clear Calc Drug Dose 76.2 ml/min Estimated GFR () 106.2 Estimated GFR (Non- 91.7 BUN/Creatinine Ratio 17.0 10-20 Random Glucose 137 70-99 mg/dl Calcium Level 8.3 8.5-10.1 mg/dl Total Creatine Kinase 87 39-308 U/L Creatine Kinase MB 1.7 0.5-3.6 ng/ml Creatine Kinase MB Ratio 0-3.0 Troponin I < 0.015 0-0.045 ng/ml Prothrombin Time 11.0 9.0-12.0 SECONDS Prothromb Time International Ratio 1.0 0.9-1.1 Activated Partial Thromboplast Time 27.3 21.0-31.0 SECONDS Partial Thromboplastin Ratio 1.1 Kaolin Activated Coagulation Time 606 482 94-140 SECONDS Test 04/29/16 08:28 04/29/16 09:39 04/29/16 10:00 04/29/16 10:10 Range/Units Kaolin Activated Coagulation Time 157 94-140 SECONDS Blood Gas Sample Site L Radial Bedside Blood Gas pH (LAB) 7.27 7.35-7.45 Bedside Blood Gas pCO2 (LAB) 40 35-46 mmHg Bedside Blood Gas pO2 (LAB) 68 80-95 mmHg Bedside Blood Gas HCO3 (LAB) 18 19-24 meq/L Bedside Blood Gas Total CO2 19 24-31 mEq/l Bedside Blood Gas Base Excess (LAB) -9.0 -9-1.8 meq/L Bedside Blood Gas O2 Saturation 91.0 90-95 % Shukri Test Pass Oxygen Delivery Device BIPAP Bedside Oxygen Rate (breaths/min) 12 Bedside FiO2 60 % Blood Gas IPAP 12 Urine Color RED Urine Appearance TURBID CLEAR Urine pH 5.0 4.5-7.[address] [place] [address] >= 1.030 1.000-1.030 Urine Protein NEG NEG Urine Glucose (UA) NEG NEG Urine Ketones NEG NEG Urine Occult Blood 2+ NEG Urine Nitrite NEG NEG Urine Bilirubin NEG NEG Urine Urobilinogen NEG NEG Urine Leukocyte Esterase NEG NEG Urine RBC >30 0-4 /hpf Urine WBC 1-5 0-5 /hpf Urine Epithelial Cells 0-5 0-5 /lpf Urine Bacteria NEG NEG White Blood Count 26.53 4.8-10.8 K/uL Red Blood Count 4.44 4.7-6.1 M/uL Hemoglobin 13.2 14.0-18.0 g/dL Hematocrit 38.5 42-52 % Mean Corpuscular Volume 86.7 80-100 fL Mean Corpuscular Hemoglobin 29.7 25-34 pg Mean Corpuscular Hemoglobin Concent 34.3 32-36 g/dl Platelet Count 334 130-400 K/uL Mean Platelet Volume 9.7 7.4-10.4 fL Neutrophils (%) (Auto) 85.2 % Lymphocytes (%) (Auto) 8.7 % Monocytes (%) (Auto) 5.7 % Eosinophils (%) (Auto) 0.0 % Basophils (%) (Auto) 0.0 % Neutrophils # (Auto) 22.59 1.4-6.5 K/uL Lymphocytes # (Auto) 2.31 1.2-3.4 K/uL Monocytes # (Auto) 1.51 0.11-0.59 K/uL Eosinophils # (Auto) 0.00 0-0.5 K/uL Basophils # (Auto) 0.01 0-0.2 K/uL RDW Standard Deviation 43.6 36.4-46.3 fL RDW Coefficient of Variation 13.6 11.5-14.5 % Immature Granulocyte % (Auto) 0.4 % Immature Granulocyte # (Auto) 0.11 0.00-0.02 K/uL Sodium Level 141 136-145 mmol/L Potassium Level 4.0 3.5-5.1 mmol/L Chloride Level 108 98-107 mmol/L Carbon Dioxide Level 24 21-32 mmol/L Anion Gap 9.0 3-11 mmol/L Blood Urea Nitrogen 15 7-18 mg/dl Creatinine 0.95 0.60-1.40 mg/dl Est Creatinine Clear Calc Drug Dose 76.2 ml/min Estimated GFR () 106.2 Estimated GFR (Non- 91.7 BUN/Creatinine Ratio 15.6 10-20 Random Glucose 157 70-99 mg/dl Estimated Average Glucose 108 mg/dl Hemoglobin A1c 5.4 4.5-5.6 % Lactic Acid Level 2.5 0.4-2.0 mmol/L Calcium Level 7.5 8.5-10.1 mg/dl Phosphorus Level 2.4 2.5-4.9 mg/dl Magnesium Level 1.9 1.8-2.4 mg/dl Total Bilirubin 0.5 0.2-1 mg/dl Aspartate Amino Transf (AST/SGOT) 571 15-37 U/L Alanine Aminotransferase (ALT/SGPT) 86 12-78 U/L Alkaline Phosphatase 60 45-117 U/L Troponin I 188.000 0-0.045 ng/ml Pro-B-Type Natriuretic Peptide 266 0-900 pg/ml Total Protein 6.1 6.4-8.2 gm/dl Albumin 3.1 3.4-5.0 gm/dl Globulin 3.0 2.5-4.0 gm/dl Albumin/Globulin Ratio 1.0 0.9-2 Triglycerides Level 173 0-150 mg/dl Cholesterol Level 146 0-200 mg/dl HDL Cholesterol 32 mg/dl LDL Cholesterol Direct 102 mg/dl LDL Cholesterol, Calculated mg/dl VLDL Cholesterol, Calculated 35 mg/dl Cholesterol/HDL Ratio 4.6 Hepatitis C Antibody Screen NEG NEG Test 04/29/16 15:18 04/29/16 15:48 Range/Units Blood Gas Sample Site L Radial Bedside Blood Gas pH (LAB) 7.36 7.35-7.45 Bedside Blood Gas pCO2 (LAB) 35 35-46 mmHg Bedside Blood Gas pO2 (LAB) 91 80-95 mmHg Bedside Blood Gas HCO3 (LAB) 20 19-24 meq/L Bedside Blood Gas Total CO2 21 24-31 mEq/l Bedside Blood Gas Base Excess (LAB) -6.0 -9-1.8 meq/L Bedside Blood Gas O2 Saturation 97.0 90-95 % Shukri Test Pass Oxygen Delivery Device BIPAP Bedside Oxygen Rate (breaths/min) 12 Bedside FiO2 70 % Blood Gas IPAP 12 Microbiology Results 04/29/16 MRSA DNA Surveillance Screen - Final, Complete Specimen Negative for MRSA by DNA Probe Diagnostic Radiology CHEST ONE VIEW PORTABLE CLINICAL HISTORY: Respiratory failure COMPARISON STUDY: 04/29/2016 FINDINGS: The heart is normal in size. There is a progressive pulmonary edema pattern. No pleural effusions are visualized. There is no pneumothorax.[ There is an old right lacunar fracture IMPRESSION: Progressive pulmonary edema pattern Impression Assessment and Plan 50 yo M smoker who was brought to ED via EMS for substernal chest pain had an NSTEMI on 04/29/16, now with 4x drug-eluting stents placed by Dr Verdugo. Plan: Acute anterior SD secondary to total proximal LAD occlusion & subtotal mid-left circumflex occlusion s/p 4 drug-eluting stent placement - As per Dr Verdugo, will keep pt in the ICU for monitoring, and continue Integrillin until tomorrow AM. - Eventually will be on Plavix with 600mg loading dose when able to take PO - Will continue Aspirin 81mg, and start MAY-I, Beta anika, and Statin when stable - Serial troponins/CMP/CBC - Daily EKGs - Echo completed today Cardiogenic shock with pulmonary edema and systemic hypotension, secondary to acute SD - Remains on pressors and in ICU under care of [facility] Team Ventricular Fibrillation during cardiac catheterization - Converted to NSR after 200J shock - Continue to monitor, continues to have a nonsustained V Tach Coronary artery disease - Will try to modify risk factors such as diet/ lipids/ kidney function - Smoking cessation VTE: Is on Integrillin DISPO: ICU CODE: Full Advanced Directives Existing Living Will: No Existing Power of Aircraft Dispatcher: No VTE Prophylaxis VTE Risk Assessment Done? Y/N: Yes Risk Level: High Resident Tracking Resident Involvement: Resident Care Provided Care Provided: Adult Hospital Medicine Reviewed: Pt Seen/Exam by Me History 50 y/o M brought to ED for substernal chest pain and had STEMI now s/p LHC and stents - had post cath v tach s/p shock and in respiratory failure currently on bipap now in ICU. unable to give much history Constitutional: denies: fever General Appearance: other (comfortable on bipap) Respiratory: lungs clear (anteriorly), other (on bipap) Cardiovascular: regular rate, rhythm Gastrointestinal: normal bowel sounds, non tender, soft Neurologic/Psychiatric: other (easily arousable. appropriately responsive) Skin Characteristics: warm/dry Assessment/Plan I have reviewed the medical record and performed a history and physical examination of this patient today. I have discussed the case with Dr. Prince. The above note reflects my findings, conclusions, and recommendations.
[2016-04-29 22:26] LABS: HEMATOCRIT 31.9 % (42-52)
[2016-04-30] VITALS (114 sets, daily range): BP systolic 65–174; BP diastolic 42–114; PULSE 93–242; TEMP 36.1–36.8; O2SAT 74–100
[2016-04-30] MEDS ORDERED: RAPID SEQUENCE INDUCTION BAG ONE (03:40)
[2016-04-30 03:49] LABS: HEMATOCRIT 32.7 % (42-52); MEAN CORPUSCULAR HEMOGLOBIN 29.5 pg (25-34); MEAN PLATELET VOLUME 9.6 fL (7.4-10.4); PLATELET COUNT 264 K/uL (130-400); RED BLOOD COUNT 3.76 M/uL (4.7-6.1); WHITE BLOOD COUNT 18.47 K/uL (4.8-10.8)
[2016-04-30 03:53] LABS: MEAN CORPUSCULAR HGB CONC 33.9 g/dl (32-36)
[2016-04-30 04:15] LABS: BASO % 0.1 %; BASO ABS # 0.02 K/uL (0-0.2); COMPLETE YES; EOS % 0.1 %; IG% 0.3 %; LYMPH % 23.4 %; LYMPH ABS # 4.32 K/uL (1.2-3.4); MONO % 8.7 %; NEUT % 67.4 %
[2016-04-30 04:17] LABS: CALCIUM 7.9 mg/dl (8.5-10.1); CREATININE 1.1 mg/dl (0.60-1.40); POTASSIUM 4.1 mmol/L (3.5-5.1)
[2016-04-30] MEDS ORDERED: FENTANYL CITRATE 1250MCG/250ML NSS ONE (04:19)
[2016-04-30] MEDS ORDERED: MIDAZOLAM 125MG/250ML D5W IV ONE (04:20)
[2016-04-30] MEDS ORDERED: MIDAZOLAM HCL 1 MG/ML 2ML VIAL ONE (04:33)
[2016-04-30 04:48] LABS: CKMB/CK RATIO 9.9 (0-3.0); MAGNESIUM 2.1 mg/dl (1.8-2.4); PHOSPHORUS 2.3 mg/dl (2.5-4.9)
[2016-04-30] MEDS ORDERED: Integrelin infusion --> STOP ORDER ONE (05:00)
[2016-04-30] MEDS ORDERED: ROCURONIUM BROMIDE IV ONE (06:00)
[2016-04-30] MEDS ORDERED: NOREPINEPHRINE BIT INJ 8 MG in DEXTROSE 5% 500ML 500 ML IV PRN (06:15)
[2016-04-30] MEDS ORDERED: NURSING VERBAL MED ORDER ONE (06:15)
[2016-04-30 06:19] LABS: HEMATOCRIT 32.1 % (42-52)
[2016-04-30] MEDS ORDERED: FUROSEMIDE 40 MG/4 ML VIAL ONE (06:37)
[2016-04-30] MEDS: CISATRACURIUM BESYLATE INJ 40 MG in SODIUM CHLORIDE 0.9% 100ML 80 ML IV PRN ×2 (06:39→10:24)
[2016-04-30] MEDS ORDERED: FUROSEMIDE 10 MG/ML 10 ML VIAL IV SCH (07:00)
[2016-04-30] MEDS ORDERED: VASOPRESSIN INJ 50 UNITS in SODIUM CHLORIDE 0.9% 500ML 500 ML IV STA (07:30)
--- NOTE | 2016-04-30 07:32 | DIAGNOSTIC IMAGING REPORT ---
CHEST ONE VIEW PORTABLE CLINICAL HISTORY: Sudden onset hemoptysis. COMPARISON STUDY: Chest radiograph April 29, 2016. FINDINGS: There is no pneumothorax or pleural effusion. Diffuse interstitial thickening and bilateral airspace opacities persist. Cardiac size is normal. Mediastinal contours are normal. IMPRESSION: Persistent diffuse interstitial thickening and bilateral airspace opacities. Pulmonary edema is favored although an infectious process could appear similar. Electronically signed by: Tiago Wesley M.D. 04/30/2016 7:31 AM Dictated Date/Time: 04/30/2016 7:29 AM
--- NOTE | 2016-04-30 07:33 | DIAGNOSTIC IMAGING REPORT ---
CHEST ONE VIEW PORTABLE CLINICAL HISTORY: Post intubation. COMPARISON STUDY: Chest radiograph April 30, 2016 at 3:34 AM. FINDINGS: The tip of the endotracheal tube is 5.2 cm above the benita. The tip of the nasogastric tube projects over the distal body of the stomach. There is no pneumothorax or pleural effusion. Cardiac size is normal. Mediastinal contours are normal. Diffuse interstitial thickening and bilateral opacities persist. IMPRESSION: 1. Satisfactory positioning of the endotracheal and nasogastric tubes. 2. Persistent diffuse interstitial thickening and bilateral opacities. Pulmonary edema is favored although an infectious process could appear similar. Electronically signed by: Tiago Wesley M.D. 04/30/2016 7:32 AM Dictated Date/Time: 04/30/2016 7:31 AM
[2016-04-30] MEDS ORDERED: VASOPRESSIN INJ 50 UNITS in SODIUM CHLORIDE 0.9% 500ML 500 ML IV SCH (07:45)
--- NOTE | 2016-04-30 08:01 | DIAGNOSTIC IMAGING REPORT ---
CHEST ONE VIEW PORTABLE CLINICAL HISTORY: Hypoxia COMPARISON STUDY: Chest radiograph April 2016 at 4:17 AM FINDINGS: The tip of the endotracheal tube is 4.8 cm above the benita. The tip of the nasogastric tube is below the lower aspect of this image but at least within the mid body of the stomach. Diffuse interstitial thickening and bilateral airspace opacities have progressed. Left basilar opacity has increased. There is no pneumothorax. There may be trace bilateral pleural effusions IMPRESSION: 1. Tip of endotracheal tube 4.8 cm above the benita. 2. Progression of diffuse interstitial thickening and bilateral opacities. Interstitial thickening is suggestive of pulmonary edema. An infectious process could appear similar. 3. Increasing left basilar opacity which could reflect superimposed pneumonia or atelectasis. Electronically signed by: Tiago Wesley M.D. 04/30/2016 7:59 AM Dictated Date/Time: 04/30/2016 7:57 AM
[2016-04-30] MEDS ORDERED: MIDAZOLAM 125MG/250ML D5W 250 ML IV PRN (08:30)
[2016-04-30] MEDS ORDERED: FENTANYL 1250MCG/250ML NSS 250 ML IV PRN (08:30)
[2016-04-30] MEDS ORDERED: SODIUM CHLORIDE 0.9% 500ML 500 ML IV STA (08:53)
[2016-04-30] MEDS ORDERED: EpINEphrine HCL INJ 4 MG in DEXTROSE 5% 250ML 250 ML IV PRN (08:53)
[2016-04-30] MEDS ORDERED: CLOPIDOGREL BISULFATE 75 MG TAB PO SCH (09:00)
[2016-04-30] MEDS ORDERED: PANTOprazole INJ 40 MG in SYRINGE 0 ML IV SCH (09:00)
[2016-04-30] MEDS ORDERED: EPINEPHRINE HCL 4 MG in DEXTROSE 5% 250ML IV PRN (09:00)
[2016-04-30] MEDS ORDERED: ATORVASTATIN 40 MG TAB PO SCH (09:00)
[2016-04-30] MEDS ORDERED: ASPIRIN 81 MG ECTAB PO SCH (09:00)
[2016-04-30] MEDS ORDERED: MIDAZOLAM HCL 1 MG/ML 2ML VIAL IV ONE (09:01)
[2016-04-30] MEDS ORDERED: ETOMIDATE 2 MG/ML 20 ML VIAL IV ONE (09:01)
[2016-04-30] MEDS ORDERED: ROCURONIUM BROMIDE 10 MG/ML 10 ML VIAL IV ONE (09:01)
[2016-04-30] MEDS ORDERED: SODIUM CHLORIDE 0.9% 10ML FLUSH IV ONE (09:01)
[2016-04-30] MEDS ORDERED: SUCCINYLCHOLINE CHLORIDE 20 MG/ML 10 ML VIAL IV ONE (09:01)
[2016-04-30] MEDS ORDERED: FENTANYL CITRATE INJ 50 MCG/1 ML 2 ML VIAL IV ONE (09:01)
[2016-04-30 09:06] LABS: BASO % 0.1 %; BASO ABS # 0.02 K/uL (0-0.2); HEMATOCRIT 29.4 % (42-52); IG% 0.4 %; LYMPH % 11.2 %; LYMPH ABS # 2.51 K/uL (1.2-3.4); MEAN CELL VOLUME 89.6 fL (80-100); MEAN CORPUSCULAR HEMOGLOBIN 29.9 pg (25-34); MEAN PLATELET VOLUME 9.8 fL (7.4-10.4); MONO % 6.2 %; NEUT % 82.1 %; PLATELET COUNT 385 K/uL (130-400); RED BLOOD COUNT 3.28 M/uL (4.7-6.1); WHITE BLOOD COUNT 22.38 K/uL (4.8-10.8)
[2016-04-30 09:15] LABS: COMPLETE YES; MEAN CORPUSCULAR HGB CONC 33.3 g/dl (32-36)
[2016-04-30 09:28] LABS: FIBRINOGEN* 381 mg/dl (184-400); PARTIAL THROMBOPLASTIN RATIO 0.9; PROTHROMBIN TIME (PATIENT) 10.6 SECONDS (9.0-12.0)
[2016-04-30 09:30] LABS: BUN/CREATININE RATIO 16.5 (10-20); CALCIUM 7.2 mg/dl (8.5-10.1); CREATININE 1.1 mg/dl (0.60-1.40); MAGNESIUM 2.4 mg/dl (1.8-2.4); POTASSIUM 5.5 mmol/L (3.5-5.1)
[2016-04-30] MEDS ORDERED: SODIUM BICARB 8.4% INJ 50 MEQ/50 ML SYR - CCU EMERGENCY DRUG IV STA (09:41)
[2016-04-30] MEDS ORDERED: SODIUM BICARB 8.4% INJ 50 MEQ/50 ML SYR - CCU EMERGENCY DRUG IV ONE (09:41)
--- NOTE | 2016-04-30 09:41 | ECHOCARDIOGRAM REPORT ---
*NOTICE TO RECEIVING [employer] This information is strictly Confidential and protected under [place] law. [place] law prohibits you from making any further disclosure of this information unless further disclosure is expressly permitted by the written consent of the person to whom it pertains or is authorized by law. A general authorization for the release of medical or other information is not sufficient for this purpose. Hospital accepts no responsibility if the information is made available to any other person, INCLUDING THE PATIENT. Interpretation Summary * Name: GURINDER BABCOCK Study Date: 04/30/2016 08:09 AM BP: 109/78 mmHg * Patient Location: E108 HR: 109 * : 1965 (M/d/yyyy) Gender: Male Height: 68 in * Age: 50 yrs Ethnicity: [place] Weight: 138 lb * Ordering Physician: CARLOS HENDERSON PA-C * Performed By: Shala Vee RCS * * Reason For Study: S/P PCI / SUBMASSIVE HEMOPTYSIS * BSA: 1.7 m2 * Mild - moderate left ventricular systolic function. * Wall motion abnormalities consistent with infarct in the LAD distribution. * Hyperdynamic right ventricular systolic function. * Small anterior pericardial effusion without evidence of tamponade. * No significant valvular abnormalities noted. * No mechanical defects noted. Procedure Details * The study was technically limited. * Limited views were obtained. Left Ventricle * The left ventricle is normal in size. * There is no ventricular septal defect visualized. * There is normal left ventricular wall thickness. * Left ventricular systolic function is mild to moderately reduced. * Ejection Fraction = 40-45%. * Mid - distal septal and apical akinesis. Anterolateral severe hypokinesis. Inferopaical severe hypokinesis to akinesis. The base of the left ventricle is hyperdynamic. Right Ventricle * The right ventricle is normal size. * The right ventricle is hyperdynamic. Mitral Valve * The mitral valve is grossly normal. * Significant mitral regurgitation is absent. Tricuspid Valve * The tricuspid valve is not well visualized, but is grossly normal. Aortic Valve * The aortic valve is not well visualized. * There is no significant aortic regurgitation. Pericardium/Pleural * Small pericardial effusion. * There are no echocardiographic indications of cardiac tamponade. Great Vessels * Normal inferior vena cava diameter and respiratory variation suggests normal central venous pressure.
[2016-04-30] MEDS ORDERED: SODIUM BICARB 8.4% INJ 50 MEQ/50 ML SYR IV ONE (09:45)
[2016-04-30 09:48] LABS: C-REACTIVE PROTEIN 4.02 mg/dl (0-0.29); CKMB/CK RATIO 8.4 (0-3.0)
[2016-04-30 09:52] LABS: ISTAT ARTERIAL BLOOD GAS HCO3 25 meq/L (19-24); ISTAT ARTERIAL BLOOD GAS PCO2 89 mmHg (35-46); ISTAT ARTERIAL BLOOD GAS PO2 125 mmHg (80-95); ISTAT ARTERIAL BLOOD GAS pH 7.06 (7.35-7.45); ISTAT CARBON DIOXIDE 28 mEq/l (24-31); ISTAT DELIVERY SYSTEM Ventilator; ISTAT FIO2 100 %; ISTAT PEEP 8; ISTAT RATE 20; ISTAT SITE Art Line; VE 11.1; Vt 500
[2016-04-30] MEDS ORDERED: SODIUM BICARBONATE 8.4% INJ 150 MEQ in DEXTROSE 5% 1000ML 1,000 ML IV SCH (10:30)
--- NOTE | 2016-04-30 10:35 | Procedure Note ---
Procedure Note Procedure Date Apr 30, 2016. Procedure Description Procedure Name: Flexible fiberoptic bronchoscopy Consent obtained: emergent consent implied Time of procedure: 05:00 Performed by: attending Indications: diagnostic, therapeutic Contraindications: none Description: Bronchoscopy performed via ET tube for hemoptysis. The Integrilin was stopped Bronchoscopy was performed multiple times over three hours Noticed fresh blood in all lobes, it was suctioned. No tracheal or endobronchial source of bleeding identified. Lavages performed in multiple lobes, initially he had persistent bloody return. The returned seemed worse in the left upper lobe, lingular area. I would estimate he lost in total about 200 ml of blood. The patient was not bleeding briskly, I did not see any benefit in placing a endobronchial blocking device. It was more of a diffuse slow oozing. Presentation and findings are more consistent with diffuse alveolar hemorrhage Complications: none
--- NOTE | 2016-04-30 10:38 | Procedure Note ---
Procedure Note Procedure Date Apr 30, 2016. Procedure Description Procedure Name: Endotracheal intubation Consent obtained: emergent consent implied Time of procedure: 05:00 Performed by: attending Indications: therapeutic Contraindications: none Description: Patient was preoxygenated with 100% O2 Received sedation and neuromuscular blockade (Etomidate and Succinylcholine) Intubated with ease using the Glidescope with a cuffed 8.5 ET tube. Found a significant amount of coagulated blood in the posterior pharynx, but no active bleeding observed. ET tube position confirmed by color change on capnometry and auscultation CXR shows ET tube in good position
--- NOTE | 2016-04-30 10:53 | Critical Care Progress Note ---
Critical Care Progress Note Date of Service Apr 30, 2016. Attending Dr. Sykes Subjective On BiPAP since cardiac cath with intermittent breaks. 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 Patient was sedated and intubated to protect his airway with multiple bronchoscopies. Please see Dr Sykes's addenudum for complete events overnight. Patient currently intubated and sedated when seen. Objective VITAL SIGNS: were reviewed as below Examination approximately 7am after bronchoscopy GENERAL: intubated and sedated, appears dusky in peripheries SKIN: Warm dry and pink, no rashes, no lesions HEAD: Normocephalic and atraumatic EYES: pupils small equal, reactive b/l OROPHARYNX: intubated and OG in place, clotted blood around his mouth LUNGS: coarse crackles throughout HEART: tachycardia, heart sounds 1+2, no murmurs heard ABDOMEN: Soft and nontender, bowel sounds normal EXTREMITIES: dusky appearance with prolonged cap refill 4-5 seconds, normal centrally NEUROLOGICALLY: Intubated and sedated. pupils as above. MUSCULOSKELETAL: no evidence of trauma LINES AND TUBES: left femoral central line in place, x2 18G in left arm, OG tube , 8.5ET tube Assessment & Plan 50 yo smoker with no routine medical care admitted for STEMI s/p cardiac cath with stents. ICU admission with hypotension requiring vasopressor support and acute respiratory failure. Neuro: Sedated and intubated. On Midazolam (4 mg/hr), Fentanyl (150 mcg/hr/) and Cisatracurium (3mcg/kg/min) drips. Resp: Acute hypoxic hypercapnic respiratory failure, ARDS, suspect diffuse alveolar hemorrhage. Intubated approximately 4am with 8.5 ET tube due to hemoptysis. Current settings PEEP 18, RR 28, TV 500 ml FiO2 100%. Latest (ABG 9:40am with RR 24) pH 7.051, pCO2 90.5, pO2 128 HCO3 25.1. Therefore increased rate to 28 and push bicarb 8.4% 50 meq. Cardio: STEMI: Appreciate cardiology management. Holding aspirin and plavix due to respiratory bleeding, Integrilin stopped (had approximately 17 hours). No BB or ACEi currently due to shock. CHF: suspected pulmonary edema is more likely ARDS. 80mg lasix given 6:40am but did not appear to have much response to this. Greene cath in place. I&Os, Daily weights. Fluid balance equal. Shock: Likely hypovolemic given good echo. Echo 04/30/16: right ventricle hyperdynamic LVEF 40-45%. On Levophed overnight (currently 0.3mcg/kg/hr), vasopressin (0.01) started 7:45am, Epinephrine started. GI: Mild dark red blood from OG tube, likely from respiratory source given bronchoscopy findings. GI Prophylaxis with protonix 40mg IV daily Defer nutrition given critical illness : Hematuria on initial greene cath insertion, UA otherwise negative. Likely traumatic while on Integrilin. Now appears resolved. Hyperkalemia 5.5, NSS bolus given 500ml. Give additional 1500 mls, then start bicarb drip HEME: Hgb trending down, suspect diffuse alveolar bleed. Admission Hgb 16.8, Latest Hgb 9.8 (8:45am). DIC labs negative, normal PT and APTT, d-dimer raised in setting of severe STEMI , fibrinogen 381 (WNL) Raised WBC in setting of severe STEMI ID: no acute issues SKIN: no acute issues LINES and TUBES: Left axillary A line (placed 04/30/16) Left femoral central line (placed 04/29/16) x2 18G in left arm (placed 04/29/16) 8.5 ET tube OG tube VTE Prophylaxis: SCDs and TEDs. Chemical prophylaxis contraindicated due to alveolar hemorrhage Code: Full Disposition: Discuss with [facility] to transfer patient as may need ECMO and tertiary care due to critically unwell status. Resident Physician Supervision Note: I was present with Dr. Abel Christopher during the history and exam. I discussed the case with the resident and agree with the findings and plan as documented in the note. Any exceptions or clarifications are listed here: At around 0330 he became acutely short of breath and developed hemoptysis, expectorated approx 100 ml of bright red blood. He was emergently intubated, bronchoscopy performed multiple times, no clear area of bleeding was identified, no brisk bleeding, just slow oozing, there was some predominance in the LANIE. Integrilin was stopped. Because the bleeding was persisting and he was profoundly hypoxic, we administered an unit of platelets, benefits outweighing the risks of stent thrombosis. We also escalated the pressor support, now on Levophed, Vasopressin and Epinephrine drips. Eventually the bleeding slowed down considerably. Echo performed, shows some LV function depression, but not severe enough to explain the current symptoms. RV is hyperdynamic Patient is also deeply sedated and on neuromuscular blockade to improve the oxygenation. Has significant respiratory acidosis, not responding well to vent changes. Started on bicarb drip to drive up the pH. In retrospect, he might not have been in pulmonary edema after all, but had incipient diffuse alveolar hemorrhage that became obvious overnight, worsened by Plavix, ASA and Integrilin. There is some IVC variability when PEEP is lowered. Will attempt administering a fluid bolus and monitor the response. At this point, the patient requires more aggressive therapy, such as Blue, prone therapy, ECMO. Will transfer patient to [facility], was accepted over there Documented By: Miles Sykes MD Data Medications: Current Inpatient Medications Medications (Trade) Dose Ordered Sig/Ivette Route Start Time Stop Time Status Last Admin Dose Admin Sodium Chloride (Nss 1000ml) 1,000 ml @ 15 mls/hr Q24H IV 04/29/16 10:00 05/29/16 09:59 04/29/16 10:04 15 MLS/HR Atropine Sulfate (Atropine Sulfate 0.1MG/Ml Inj) 0.5 mg ONE PRN IV 04/29/16 09:15 05/29/16 09:14 Ondansetron HCl (Zofran Inj) 4 mg Q6H PRN IV 04/29/16 09:15 05/29/16 09:14 Atorvastatin Calcium 80 mg 80 mg QAM PO 04/30/16 09:00 05/30/16 08:59 Cisatracurium Besylate 40 mg/ Sodium Chloride 100 ml @ 0 mls/hr Q0M PRN IV 04/30/16 06:15 05/30/16 06:14 04/30/16 06:39 22.7 MLS/HR Norepinephrine Bitartrate 8 mg/ Dextrose 508 ml @ 0 mls/hr Q0M PRN IV 04/30/16 06:15 05/30/16 06:14 04/30/16 06:39 53 MLS/HR Vasopressin 50 units/Sodium Chloride 502.5 ml @ 24 mls/hr [id number] IV 04/30/16 07:45 05/30/16 07:44 04/30/16 07:44 24 MLS/HR Pantoprazole Sodium 40 mg/ Syringe 10 ml @ 5 mls/min DAILY IV 04/30/16 09:00 05/30/16 08:59 UNV Fentanyl Citrate 250 ml @ 0 mls/hr Q0M PRN IV 04/30/16 08:30 05/14/16 08:29 UNV Midazolam HCl 250 ml @ 0 mls/hr Q0M PRN IV 04/30/16 08:30 05/30/16 08:29 UNV Sodium Chloride (Nss 500ml) 500 ml @ 999 mls/hr Q31M STAT IV 04/30/16 08:53 04/30/16 09:23 UNV I & O: 24-Hour Column 04/30/16 07:59 Intake Total 1013 ml Output Total 1000 ml Balance 13 ml Vital Signs: Date Time Temp Pulse Resp B/P Pulse Ox O2 Delivery O2 Flow Rate FiO2 04/30/16 08:14 100 04/30/16 07:31 100 04/30/16 07:13 110 20 109/78 86 04/30/16 07:13 103 139/89 98 04/30/16 07:08 111 22 112/70 88 04/30/16 07:03 115 20 92/71 90 04/30/16 06:58 117 20 88/65 89 04/30/16 06:54 118 20 87/59 90 04/30/16 06:53 119 20 90 04/30/16 06:49 118 20 93/60 04/30/16 06:48 115 18 88 04/30/16 06:44 117 15 116/79 04/30/16 06:43 121 18 89 04/30/16 06:38 117 23 95/65 91 04/30/16 06:34 118 20 76/66 90 04/30/16 06:33 119 20 76/56 90 04/30/16 06:28 124 20 89/56 90 04/30/16 06:23 128 20 86/62 89 04/30/16 06:18 131 27 108/75 86 04/30/16 06:13 131 20 93/68 87 04/30/16 06:13 131 20 93/68 87 04/30/16 06:08 136 19 95/74 86 04/30/16 06:03 106 14 84/59 93 04/30/16 05:58 123 19 88/60 78 04/30/16 05:54 125 34 101/66 80 04/30/16 05:50 125 25 80 04/30/16 05:48 124 23 111/80 81 04/30/16 05:43 121 20 98/85 81 04/30/16 05:40 126 40 87 04/30/16 05:38 127 27 104/72 88 04/30/16 05:35 122 32 87 04/30/16 05:33 123 28 103/74 89 04/30/16 05:30 126 31 92 04/30/16 05:30 126 31 92 04/30/16 05:28 121 15 105/72 88 04/30/16 05:25 120 14 88 04/30/16 05:23 120 16 115/69 87 04/30/16 05:20 116 14 89 04/30/16 05:18 118 29 120/84 91 04/30/16 05:15 121 15 92 04/30/16 05:13 130 14 104/86 93 04/30/16 05:10 242 14 94 04/30/16 05:08 121 24 75/55 92 04/30/16 05:05 125 21 87 04/30/16 05:03 122 14 98/69 84 04/30/16 05:00 122 14 85 04/30/16 04:58 123 15 108/77 89 04/30/16 04:55 132 15 91 04/30/16 04:53 133 14 126/75 89 04/30/16 04:50 123 14 90 04/30/16 04:48 115 22 93/63 90 04/30/16 04:45 114 30 91 04/30/16 04:45 114 30 91 04/30/16 04:43 115 23 105/59 92 04/30/16 04:40 115 23 94 04/30/16 04:38 115 23 107/61 94 04/30/16 04:35 116 23 94 04/30/16 04:33 123 23 110/69 93 04/30/16 04:30 111 24 93 04/30/16 04:28 112 19 100/72 94 04/30/16 04:25 122 21 92 04/30/16 04:23 128 13 104/72 87 04/30/16 04:20 121 19 87 04/30/16 04:18 122 23 110/68 85 04/30/16 04:15 135 17 80 04/30/16 04:14 135 14 134/106 87 04/30/16 04:10 127 14 159/114 86 04/30/16 04:09 127 13 174/104 81 04/30/16 04:08 107 14 159/104 83 04/30/16 04:05 128 22 74 04/30/16 04:04 107 31 99/65 78 04/30/16 04:00 104 29 95 04/30/16 04:00 100 04/30/16 04:00 93 Non-Rebreather 04/30/16 02:11 93 98 60 04/30/16 02:00 95 21 96/67 98 BiPAP 60 04/30/16 00:01 36.5 18 100/67 98 BiPAP 60 04/29/16 23:59 98 BiPAP 60 04/29/16 22:00 95 22 93/68 99 BiPAP 60 04/29/16 21:47 89 100 60 04/29/16 20:00 36.5 98 23 96/71 98 BiPAP 60 04/29/16 20:00 99 BiPAP 60 04/29/16 18:00 94 20 99/71 99 BiPAP 60 04/29/16 16:45 90 97 60 04/29/16 16:00 36.2 95 22 86/63 94 Nasal Cannula 6.0 04/29/16 16:00 94 Nasal Cannula 6.0 04/29/16 14:00 96 20 99/69 100 BiPAP 60 04/29/16 12:48 93 19 91/72 100 04/29/16 12:45 94 20 99 04/29/16 12:38 92 20 94/75 100 04/29/16 12:30 96 20 100 04/29/16 12:28 91 20 98/70 100 04/29/16 12:18 98 21 96/67 96 04/29/16 12:16 98 94 70 04/29/16 12:15 92 20 100 04/29/16 12:09 95 23 95/74 99 04/29/16 12:00 99 BiPAP 70 04/29/16 12:00 107 20 89 04/29/16 11:58 100 23 100/74 91 04/29/16 11:48 106 20 95/66 97 04/29/16 11:45 94 20 98 04/29/16 11:38 96 23 85/64 98 04/29/16 11:30 96 21 98 04/29/16 11:29 93 21 89/67 98 04/29/16 11:18 96 21 93/71 98 04/29/16 11:15 98 22 99 04/29/16 11:11 102 23 88/66 97 04/29/16 11:11 102 23 88/66 97 04/29/16 11:08 98 / 97 04/29/16 11:08 98 / 97 04/29/16 11:00 97 20 97 04/29/16 11:00 97 20 97 04/29/16 10:58 100 21 98/79 96 04/29/16 10:48 95 24 103/74 98 04/29/16 10:45 102 19 97 04/29/16 10:38 95 17 103/72 97 04/29/16 10:30 100 20 95 04/29/16 10:28 102 18 99/75 96 04/29/16 10:20 90 70 04/29/16 10:18 103 18 97/72 94 04/29/16 10:15 97 18 96 04/29/16 10:08 105 19 93/70 95 04/29/16 10:00 110 18 88 04/29/16 09:58 106 18 112/84 90 Laboratory Results: Last 24 Hours Test 04/29/16 10:00 04/29/16 10:10 04/29/16 15:18 04/29/16 15:48 Urine Color RED Urine Appearance TURBID Urine pH 5.0 Urine Specific [place] >= 1.030 Urine Protein NEG Urine Glucose (UA) NEG Urine Ketones NEG Urine Occult Blood 2+ Urine Nitrite NEG Urine Bilirubin NEG Urine Urobilinogen NEG Urine Leukocyte Esterase NEG Urine RBC >30 /hpf Urine WBC 1-5 /hpf Urine Epithelial Cells 0-5 /lpf Urine Bacteria NEG White Blood Count 26.53 K/uL Red Blood Count 4.44 M/uL Hemoglobin 13.2 g/dL 12.9 g/dL Hematocrit 38.5 % 37.2 % Mean Corpuscular Volume 86.7 fL Mean Corpuscular Hemoglobin 29.7 pg Mean Corpuscular Hemoglobin Concent 34.3 g/dl Platelet Count 334 K/uL Mean Platelet Volume 9.7 fL Neutrophils (%) (Auto) 85.2 % Lymphocytes (%) (Auto) 8.7 % Monocytes (%) (Auto) 5.7 % Eosinophils (%) (Auto) 0.0 % Basophils (%) (Auto) 0.0 % Neutrophils # (Auto) 22.59 K/uL Lymphocytes # (Auto) 2.31 K/uL Monocytes # (Auto) 1.51 K/uL Eosinophils # (Auto) 0.00 K/uL Basophils # (Auto) 0.01 K/uL RDW Standard Deviation 43.6 fL RDW Coefficient of Variation 13.6 % Immature Granulocyte % (Auto) 0.4 % Immature Granulocyte # (Auto) 0.11 K/uL Sodium Level 141 mmol/L 141 mmol/L Potassium Level 4.0 mmol/L 4.5 mmol/L Chloride Level 108 mmol/L 109 mmol/L Carbon Dioxide Level 24 mmol/L 21 mmol/L Anion Gap 9.0 mmol/L 11.0 mmol/L Blood Urea Nitrogen 15 mg/dl 16 mg/dl Creatinine 0.95 mg/dl 0.91 mg/dl Est Creatinine Clear Calc Drug Dose 76.2 ml/min 84.6 ml/min Estimated GFR () 106.2 111.9 Estimated GFR (Non- 91.7 96.6 BUN/Creatinine Ratio 15.6 17.4 Random Glucose 157 mg/dl 126 mg/dl Estimated Average Glucose 108 mg/dl Hemoglobin A1c 5.4 % Lactic Acid Level 2.5 mmol/L Calcium Level 7.5 mg/dl 7.7 mg/dl Phosphorus Level 2.4 mg/dl Magnesium Level 1.9 mg/dl Total Bilirubin 0.5 mg/dl Aspartate Amino Transf (AST/SGOT) 571 U/L Alanine Aminotransferase (ALT/SGPT) 86 U/L Alkaline Phosphatase 60 U/L Troponin I 188.000 ng/ml > 200.000 ng/ml Pro-B-Type Natriuretic Peptide 266 pg/ml Total Protein 6.1 gm/dl Albumin 3.1 gm/dl Globulin 3.0 gm/dl Albumin/Globulin Ratio 1.0 Triglycerides Level 173 mg/dl Cholesterol Level 146 mg/dl HDL Cholesterol 32 mg/dl LDL Cholesterol Direct 102 mg/dl LDL Cholesterol, Calculated mg/dl VLDL Cholesterol, Calculated 35 mg/dl Cholesterol/HDL Ratio 4.6 Hepatitis C Antibody Screen NEG Blood Gas Sample Site L Radial Bedside Blood Gas pH (LAB) 7.36 Bedside Blood Gas pCO2 (LAB) 35 mmHg Bedside Blood Gas pO2 (LAB) 91 mmHg Bedside Blood Gas HCO3 (LAB) 20 meq/L Bedside Blood Gas Total CO2 21 mEq/l Bedside Blood Gas Base Excess (LAB) -6.0 meq/L Bedside Blood Gas O2 Saturation 97.0 % Shukri Test Pass Oxygen Delivery Device BIPAP Bedside Oxygen Rate (breaths/min) 12 Bedside FiO2 70 % Blood Gas IPAP 12 Test 04/29/16 17:04 04/29/16 21:21 04/29/16 22:12 04/30/16 03:40 Bedside Glucose 135 mg/dl 127 mg/dl Hemoglobin 11.0 g/dL 11.1 g/dL Hematocrit 31.9 % 32.7 % White Blood Count 18.47 K/uL Red Blood Count 3.76 M/uL Mean Corpuscular Volume 87.0 fL Mean Corpuscular Hemoglobin 29.5 pg Mean Corpuscular Hemoglobin Concent 33.9 g/dl Platelet Count 264 K/uL Mean Platelet Volume 9.6 fL Neutrophils (%) (Auto) 67.4 % Lymphocytes (%) (Auto) 23.4 % Monocytes (%) (Auto) 8.7 % Eosinophils (%) (Auto) 0.1 % Basophils (%) (Auto) 0.1 % Neutrophils # (Auto) 12.46 K/uL Lymphocytes # (Auto) 4.32 K/uL Monocytes # (Auto) 1.60 K/uL Eosinophils # (Auto) 0.02 K/uL Basophils # (Auto) 0.02 K/uL RDW Standard Deviation 43.3 fL RDW Coefficient of Variation 13.6 % Immature Granulocyte % (Auto) 0.3 % Immature Granulocyte # (Auto) 0.05 K/uL Sodium Level 140 mmol/L Potassium Level 4.1 mmol/L Chloride Level 105 mmol/L Carbon Dioxide Level 23 mmol/L Anion Gap 12.0 mmol/L Blood Urea Nitrogen 18 mg/dl Creatinine 1.10 mg/dl Est Creatinine Clear Calc Drug Dose 70.0 ml/min Estimated GFR () 89.0 Estimated GFR (Non- 76.8 BUN/Creatinine Ratio 16.0 Random Glucose 154 mg/dl Calcium Level 7.9 mg/dl Phosphorus Level 2.3 mg/dl Magnesium Level 2.1 mg/dl Total Bilirubin 0.9 mg/dl Aspartate Amino Transf (AST/SGOT) 526 U/L Alanine Aminotransferase (ALT/SGPT) 104 U/L Alkaline Phosphatase 52 U/L Total Creatine Kinase 2876 U/L Creatine Kinase MB 284.9 ng/ml Creatine Kinase MB Ratio 9.9 Troponin I 149.000 ng/ml Total Protein 6.0 gm/dl Albumin 3.0 gm/dl Globulin 3.0 gm/dl Albumin/Globulin Ratio 1.0 Test 04/30/16 05:24 04/30/16 08:45 04/30/16 09:42 Hemoglobin 10.9 g/dL 9.8 g/dL Hematocrit 32.1 % 29.4 % Prothrombin Time 11.0 SECONDS 10.6 SECONDS Prothromb Time International Ratio 1.0 1.0 White Blood Count 22.38 K/uL Red Blood Count 3.28 M/uL Mean Corpuscular Volume 89.6 fL Mean Corpuscular Hemoglobin 29.9 pg Mean Corpuscular Hemoglobin Concent 33.3 g/dl Platelet Count 385 K/uL Mean Platelet Volume 9.8 fL Neutrophils (%) (Auto) 82.1 % Lymphocytes (%) (Auto) 11.2 % Monocytes (%) (Auto) 6.2 % Eosinophils (%) (Auto) 0.0 % Basophils (%) (Auto) 0.1 % Neutrophils # (Auto) 18.37 K/uL Lymphocytes # (Auto) 2.51 K/uL Monocytes # (Auto) 1.38 K/uL Eosinophils # (Auto) 0.00 K/uL Basophils # (Auto) 0.02 K/uL RDW Standard Deviation 45.5 fL RDW Coefficient of Variation 13.8 % Immature Granulocyte % (Auto) 0.4 % Immature Granulocyte # (Auto) 0.10 K/uL Activated Partial Thromboplast Time 24.0 SECONDS Partial Thromboplastin Ratio 0.9 Fibrinogen 381 mg/dl D-Dimer 920 ug/L FEU Sodium Level 138 mmol/L Potassium Level 5.5 mmol/L Chloride Level 103 mmol/L Carbon Dioxide Level 29 mmol/L Anion Gap 6.0 mmol/L Blood Urea Nitrogen 18 mg/dl Creatinine 1.10 mg/dl Est Creatinine Clear Calc Drug Dose 70.0 ml/min Estimated GFR () 89.0 Estimated GFR (Non- 76.8 BUN/Creatinine Ratio 16.5 Random Glucose 239 mg/dl Calcium Level 7.2 mg/dl Magnesium Level 2.4 mg/dl Total Creatine Kinase 2365 U/L Creatine Kinase MB 199.4 ng/ml Creatine Kinase MB Ratio 8.4 Troponin I 83.900 ng/ml C-Reactive Protein 4.02 mg/dl Resident Tracking Resident Involvement: Resident Care Provided Care Provided: Adult Hospital Medicine (ICU)
--- NOTE | 2016-04-30 10:54 | Procedure Note ---
Procedure Note Procedure Date Apr 30, 2016. Procedure Description Procedure Name: Left axillary a-line Procedure time out: side/site verified, correct procedure Consent obtained: written Time of procedure: 09:00 Performed by: attending, physician contract clerk (Leela LAWRENCE) Indications: diagnostic Contraindications: none Description: Patient in supine position, prepped the left axilla using chlorhexidine., Patient was covered with full sterile body drape. Sterile precautions maintained throughout the procedure. Using ultrasound guidance, inserted a 20G a-line in the left axillary artery. Guidewire removed intact Connected the a-line to the tubing, has adequate waveforms on the monitor Sutured the a-line and secured with adhesive dressing. No hematoma observed, access obtain from the first stick, no "[id number]" Complications: none Patient tolerated procedure: well
[2016-04-30 11:10] LABS: ISTAT ARTERIAL BLOOD GAS HCO3 24 meq/L (19-24); ISTAT ARTERIAL BLOOD GAS PCO2 75 mmHg (35-46); ISTAT ARTERIAL BLOOD GAS PO2 133 mmHg (80-95); ISTAT CARBON DIOXIDE 26 mEq/l (24-31); ISTAT DELIVERY SYSTEM Ventilator; ISTAT FIO2 100 %; ISTAT PEEP 18; ISTAT RATE 28; ISTAT SITE Art Line; VE 13.8; Vt 500
[2016-04-30] MEDS ORDERED: CALCIUM CHLORIDE IV ONE (11:30)
[2016-04-30] MEDS ORDERED: [UNRECOGNIZED DRUG - OTHER] IV ONE (11:30)
[2016-04-30] MEDS ORDERED: INSULIN ASPART 100 UNITS/ML 3 ML PEN SC SCH (12:00)
--- NOTE | 2016-04-30 16:32 | Discharge Summary ---
Discharge Summary Admission Date: Apr 29, 2016 at 09:34 Discharge Date: Apr 30, 2016 Discharge Disposition: Acute care facility ([facility]) Principal Diagnosis: NSTEMI, Acute hypoxic respiratory failure Procedures: CXR (Most recent on 04/30/16): 1. Tip of endotracheal tube 4.8 cm above the benita. 2. Progression of diffuse interstitial thickening and bilateral opacities. Interstitial thickening is suggestive of pulmonary edema. An infectious process could appear similar. 3. Increasing left basilar opacity which could reflect superimposed pneumonia or atelectasis. Consultations: Events Associate Cardiology, Dr Verdugo (Zonia Prince MD) Medication Reconciliation Medication Profile: No Active Prescriptions or Reported Meds Discharge Exam Intubated last night for being hypoxic while on bipap Review of Systems: Constitutional: No fever Physical Exam: General Appearance: + pertinent finding (sedated and paralyzed. On vent) Respiratory/Chest: + crackles, + pertinent finding (on vent) Cardiovascular: regular rate, rhythm Abdomen / GI: normal bowel sounds, soft Neurologic/Psychiatric: + pertinent finding (sedated and paralyzed) Skin: warm/dry (Sunitha Kevin M.D.) Hospital Course Mr Nahum Mcgovern is a 50 yo M from [place] who presented initially as a heart alert on 04/29/16. The patient reports he was sleeping and at 4 am woke up with substernal, left sided chest pain, with numbness down the left arm. He was brought in by ambulance and received aspirin, nitroglycein (which called hypotension) so he received IV fluids. A Heart Alert was called upon his arrival to the ED, and he underwent cardiac catheterization with Dr Verdugo. He was found to have 100% stenosis in the proximal LAD, 99% in the mid-circumflex, 30% of the distal RCA. He had two drug-eluting stents placed in the LAD, one in the proximal diagonal, and one to the mid-circumflex. During his catheterization he had ventricular fibrillation which converted to NSR with 200J shock. He became bradycardic and hypotensive and received IV atropine and was started on pressors. (Hospital course from Dr Sykes's note) At around 0330 he became acutely short of breath and developed hemoptysis, expectorated approx 100 ml of bright red blood. He was emergently intubated, bronchoscopy performed multiple times, no clear area of bleeding was identified , no brisk bleeding, just slow oozing, there was some predominance in the LANIE. Integrilin was stopped. Because the bleeding was persisting and he was profoundly hypoxic, we administered an unit of platelets, benefits outweighing the risks of stent thrombosis. We also escalated the pressor support, and he was on Levophed, Vasopressin and Epinephrine drips. Eventually the bleeding slowed down considerably. Echo was performed, showed some LV function depression, but not severe enough to explain the current symptoms. RV is hyperdynamic He was also deeply sedated and on neuromuscular blockade to improve the oxygenation. Had significant respiratory acidosis, not responding well to vent changes. Started on bicarb drip to drive up the pH. At this point, the patient required more aggressive therapy, such as Blue, prone therapy, ECMO. Transferred the patient to [facility], he was accepted and transferred by helicopter over there Total Time Spent: Greater than 30 minutes This includes examination of the patient, discharge planning, medication reconciliation, and communication with other providers. (Zonia Prince MD) I have reviewed the medical record and performed a history and physical examination of this patient today. I have discussed the case with Dr. Prince. The above note reflects my findings, conclusions, and recommendations. Total Time Spent: Greater than 30 minutes (35) (Sunitha Kevin M.D.) Discharge Instructions Please refer to the electronic Patient Visit Report (Discharge Instructions) for additional information. (Zonia Prince MD) Additional Copies To [facility] Resident Tracking Resident Involvement: Resident Care Provided Care Provided: Adult Hospital Medicine (Zonia Prince MD)
--- NOTE | 2016-04-30 21:13 | PROGRESS NOTE ---
DATE: 04/30/2016 HISTORY OF PRESENT ILLNESS: The patient was seen by me this morning in the intensive care unit. This was prior to him being transferred to [facility]. The events overnight were discussed with the social media manager, hospitalist, and the nursing staff. The patient was doing relatively well overnight until sudden onset of severe dyspnea and respiratory distress at 3:15 a.m. He then developed significant hemoptysis. He was subsequently intubated. Bronchoscopy has been performed by Dr. Sykes. It revealed diffuse alveolar hemorrhage. This was noticed in all lobes of the lungs. No tracheal or endobronchial localized bleeding source identified. The patient remains on mechanical ventilation via endotracheal intubation. Despite high FIO2 and PEEP, he is having difficulty in maintaining oxygen saturations greater than 90%. This was at the time of my exam this morning, which was at approximately 8:30 a.m. The nursing staff reports that the patient had no complaints of chest pain following admission to the intensive care unit. He did have an episode of nonsustained ventricular tachycardia. No sustained ventricular tachycardia was noted. When the patient developed hemoptysis, his Integrilin was discontinued. This morning the patient was on vasopressin and norepinephrine. He was subsequently started on epinephrine also. PHYSICAL EXAMINATION: Exam this morning by me: GENERAL: Showed the patient to be lying in his bed. Endotracheal intubation. He is sedated. Monitor showed sinus rhythm. VITAL SIGNS: At 8:54 a.m. showed oral temperature is 36.8, pulse 105, blood pressure 88/42. Pulse oximetry on 100% FIO2 is 86%. NECK: Jugular venous pressure with the patient being in the supine position is at least 7-8 cm. LUNGS: Diffuse mild rhonchi and rales. Greater at bases. HEART: Distant heart sounds. Regular rate and rhythm. S1, S2 normal. No S3 or S4. No rub. ABDOMEN: Slightly distended. Hypoactive bowel sounds. EXTREMITIES: Right femoral catheterization site without bleeding or hematoma. No bruit over the right femoral artery. There is no pretibial edema. PULSES: Dorsalis pedis and posterior tibial pulses not palpable bilaterally. NEUROLOGIC: The patient is sedated. DATA: Electrocardiogram performed this morning shows sinus tachycardia, left axis deviation, low QRS voltage, inferior Q-waves, evolving anterior AK. Poor R-wave progression across the precordial leads V1-V6. Slight ST elevation V2-V6. T inversions V2-V6, 1 and aVL. Echocardiogram performed this morning and reviewed by me showed mild to moderate left ventricular systolic dysfunction, LV ejection fraction 40-45%, mid to distal septal and apical akinesis. Anterolateral severe hypokinesis. Inferoapical severe hypokinesis to akinesis. The basal left ventricle is hyperdynamic. Hyperdynamic right ventricular systolic function. No significant valvular abnormalities noted. Small anterior pericardial effusion without evidence of tamponade. No mechanical defects noted. Chest x-ray this morning and reviewed by me revealed diffuse alveolar infiltrates and increased interstitial markings, consistent with pulmonary edema. Labs this morning with hemoglobin of 10.9, hematocrit 32.1 at 5:24 a.m. Repeat labs at 8:45 a.m. with hemoglobin 9.8 and hematocrit 29.4. Labs at 8:45 a.m. with sodium 138, potassium 5.5, chloride 103, carbon dioxide 29, BUN 18, creatinine 1.10, random glucose 239. The peak troponin I was greater than 200. This was at 1548 on April 29. Troponin I this morning is 3.900. CK total at 3:40 a.m. was 2876 with an MB of 284.9. At 8:45 a.m., it is 2365 with an MB of 199.4. Magnesium this morning 2.4. Lipid profile yesterday with triglycerides 173, total cholesterol 146, direct LDL 102, HDL 32. Hemoglobin A1c yesterday returned at 5.4. ASSESSMENT: 1. Status post acute anterior myocardial infarction 04/29/2016. Secondary to total proximal left anterior descending occlusion. Successful intervention to the left anterior descending occlusion as well as to the severe ostial LAD diagonal stenosis (bifurcation lesion) with deployment of drug-eluting stents. No significant residual stenosis. AKHIL 3 flow in LAD and diagonal post-intervention. He also had a subtotal mid left circumflex stenosis. This also was stented. No significant residual stenosis in the left circumflex stent site. AKHIL 3 flow in the left circumflex. No significant atherosclerotic disease in the right coronary artery. 2. His chest discomfort resolved by the completion of the procedure. There is no report of any further anginal symptoms yesterday or overnight. 3. Moderate left ventricular systolic dysfunction. 4. No significant valvular defects on echo today. No evidence of any mechanical complication such as a ventricular septal defect. 5. Small pericardial effusion. No evidence of tamponade on echo this morning. 6. Severe hemoptysis. Diffuse alveolar hemorrhaging on bronchoscopy. 7. Acute respiratory failure secondary to the alveolar hemorrhaging. He also had evidence of congestive heart failure prior to the hemorrhaging. 8. Hypotension. As stated above, no evidence of mechanical defect on echo this morning. No evidence of cardiac tamponade. It is possible that the lung exam and chest x-ray are secondary to noncardiogenic pulmonary injury and edema. On echo this morning, he had normal respiratory variation in his IVC diameter. This would suggest a low to normal central venous pressure. He may have a component of intravascular volume depletion. Certainly his bleeding could contribute to this. 9. Ventricular fibrillation at the time of LAD reperfusion. Since then, no sustained ventricular arrhythmias. CARDIAC RECOMMENDATIONS AND PLAN: 1. In light of his severe pulmonary, antiplatelet therapy has been discontinued. Although he has recently deployed stents in the setting of an acute myocardial infarction, the antiplatelet therapy has needed to be discontinued because of his severe life threatening bleeding. When he has stopped bleeding, would reinstitute antiplatelet therapy. 2. He is having difficulty in maintaining adequate oxygenation and pressure despite mechanical ventilation and multiple pressors. Because of this, I recommended that the patient be transferred to a tertiary cardiac center for cardiac and respiratory mechanical support. This could be achieved with venous arterial ECMO. 3. A right heart cath would be beneficial in assessing volume status. The patient was ultimately transferred today to [facility] in [place] for tertiary care. EMMA
== END 2016-04-30 12:10 | disposition short-term general hospital (02) | DRG 246 ==
LOC: C.EDB 05:14 → C.MSICU 09:34
PROVIDERS: ADMIT Internal Medicine; ATTEND Family Medicine
PROC: 027034Z Dilation of Coronary Artery, One Artery with Drug-eluting Intraluminal Device, Percutaneous Approach (ICD-10-PCS; 2016-04-29)
PROC: 4A023N7 Measurement of Cardiac Sampling and Pressure, Left Heart, Percutaneous Approach (ICD-10-PCS; 2016-04-29)
PROC: B2111ZZ Fluoroscopy of Multiple Coronary Arteries using Low Osmolar Contrast (ICD-10-PCS; 2016-04-29)
PROC: B2151ZZ Fluoroscopy of Left Heart using Low Osmolar Contrast (ICD-10-PCS; 2016-04-29)
PROC: B41J1ZZ Fluoroscopy of Other Lower Arteries using Low Osmolar Contrast (ICD-10-PCS; 2016-04-29)
PROC: 5A1935Z Respiratory Ventilation, Less than 24 Consecutive Hours (ICD-10-PCS; principal; 2016-04-30)
PROC: 0BH17EZ Insertion of Endotracheal Airway into Trachea, Via Natural or Artificial Opening (ICD-10-PCS; 2016-04-30)
PROC: 0BJ08ZZ Inspection of Tracheobronchial Tree, Via Natural or Artificial Opening Endoscopic (ICD-10-PCS; 2016-04-30)
PROC: 03H63DZ Insertion of Intraluminal Device into Left Axillary Artery, Percutaneous Approach (ICD-10-PCS; 2016-04-30)
DX: I21.4 Non-ST elevation (NSTEMI) myocardial infarction (principal); J96.01 Acute respiratory failure with hypoxia; I49.01 Ventricular fibrillation; R57.0 Cardiogenic shock; J18.9 Pneumonia, unspecified organism; J81.1 Chronic pulmonary edema; R04.2 Hemoptysis; E87.2 Acidosis; I47.2 Ventricular tachycardia; I31.3 Pericardial effusion (noninflammatory); J98.11 Atelectasis; I25.10 Atherosclerotic heart disease of native coronary artery without angina pectoris; I95.9 Hypotension, unspecified; E78.5 Hyperlipidemia, unspecified; E87.5 Hyperkalemia; I21.09 ST elevation (STEMI) myocardial infarction involving other coronary artery of anterior wall; F17.200 Nicotine dependence, unspecified, uncomplicated